=== PATIENT | female | born 1940 | race Two or more races ===

== ENCOUNTER 2022-12-11 15:06 | Outpatient (REF) | payer MEDICARE, MEDICAID, SELFPAY ==
--- NOTE | ~2022-12-11 | XR_ITS ---
EXAMINATION: XR BILATERAL KNEES CLINICAL INFORMATION: Reason for Exam M25.561 - Pain in right knee COMPARISON: None TECHNIQUE: 1 views of the bilateral knees and one view of each knee FINDINGS: RIGHT KNEE: No acute fracture or dislocation. Moderate degenerative changes of the knee with loss of lateral compartment joint space, lateral and patellofemoral compartment osteophytes and quadriceps tendon enthesopathy. No joint effusion. Atherosclerotic vascular calcification. LEFT KNEE: No acute fracture or dislocation. Moderate degenerative changes of the knee with loss of medial compartment joint space and lateral and patellofemoral compartment osteophytes and quadriceps tendon enthesopathy. Small suprapatellar joint effusion. Atherosclerotic vascular calcification. XR/XR knee standing BI IMPRESSION: * No acute osseous abnormality. * Moderate degenerative changes of the knees. Small left suprapatellar joint effusion.
== END 2022-12-11 15:07 | disposition home or self-care (01) ==
LOC: HO.HMGCX 15:06
PROVIDERS: PCP Internal Medicine; Visit Provider Internal Medicine
DX: M25.561 Pain in right knee (principal); M25.562 Pain in left knee
CPT/HCPCS: 73565

== ENCOUNTER → 2023-03-02 15:21 | Outpatient (BNVA) | payer MEDICARE, MEDICAID, SELFPAY | PROVIDERS: PCP Internal Medicine; Visit Provider Surgery Vascular Surgery | DX: I83.11 Varicose veins of right lower extremity with inflammation (principal) | CPT/HCPCS: 99202 ==

== ENCOUNTER 2023-03-10 09:58 | Outpatient (REF) | payer MEDICARE, MEDICAID, SELFPAY ==
--- NOTE | ~2023-03-10 | US_ITS ---
EXAMINATION: US VENOUS ULTRASOUND WITH DOPPLER LOWER EXTREMITY, BILATERAL CLINICAL INFORMATION: EXAMINATION: RIGHT and LEFT LOWER EXTREMITY VENOUS ULTRASOUND (Reflux Exam) CLINICAL INDICATION: leg pain and varicose veins. COMPARISON: None. TECHNIQUE: Color flow triplex imaging and compression Doppler was performed to evaluate both the deep and the superficial systems bilaterally. To evaluate the superficial system, the examination was performed in the upright position. Color-flow Doppler ultrasound and compression ultrasound were utilized. In addition, maneuvers were utilized to demonstrate reflux. FINDINGS: 1. DEEP VENOUS ULTRASOUND OF THE RIGHT LOWER EXTREMITY: Respiratory variation, normal compression and augmented flow are noted in the right common femoral vein as well as the right popliteal vein and there is no evidence of deep venous thrombosis at these locations. There is no evidence of reflux in the deep system in either the common femoral vein or the popliteal vein. There is no evidence of a Salcido's cyst. 2. SUPERFICIAL ULTRASOUND WITH DOPPLER OF RIGHT LOWER EXTREMITY: The right great saphenous vein at the saphenofemoral junction measures 8 mm, at the mid thigh 3 mm, gathn-ozt-mvzu 3 mm, svywh-hjh-urih 3 mm, at mid calf 3 mm and at the ankle measures 2 mm. There is 1.4 seconds reflux in the greater saphenous vein at the mid calf. There is an accessory lateral greater saphenous vein that measures 5 to 6 mm. This demonstrates greater than 3.2 seconds reflux in the mid thigh and 2.9 seconds reflux at the saphenofemoral junction. The right small saphenous vein measures 1 mm and shows no reflux. There is a geropsychologist that communicates with the right greater saphenous vein in the distal calf. This measures 2 mm and demonstrates 1.5 second reflux. There is a varicosity that communicates with the right greater saphenous vein in the distal thigh and measures 3 mm without reflux. 3. DEEP VENOUS ULTRASOUND OF THE LEFT LOWER EXTREMITY: Respiratory variation, normal compression and augmented flow are noted in the left common femoral vein as well as the left popliteal vein and there is no evidence of deep venous thrombosis at these locations. There is no evidence of reflux in the deep system in either the common femoral vein or the popliteal vein. . There is no evidence of a Salcido's cyst. 4. SUPERFICIAL ULTRASOUND WITH DOPPLER OF LEFT LOWER EXTREMITY: Left great saphenous vein at the saphenofemoral junction measures 7 mm, at the mid thigh 3 mm, lshbg-rij-buyp 4 mm, bhdju-org-tphu 3 mm, at mid calf 2 mm and at the ankle measures 3 mm. There is a medial accessory greater saphenous vein that measures 1 to 3 mm and does not demonstrate reflux There is no reflux demonstrated in the left great saphenous vein. The left small saphenous vein measures 1 mm and shows no reflux. There is a varicosity that communicates with the left greater saphenous vein in the distal thigh and measures 3 mm without reflux. US/US venous duplex LE BI IMPRESSION: 1. No evidence of reflux or thrombus in the common femoral veins or popliteal veins bilaterally. 2. Right greater saphenous vein 1.5 second reflux in the mid calf. Lateral accessory greater saphenous vein with significant 3 seconds reflux. No left-sided reflux.
== END 2023-03-10 09:59 | disposition home or self-care (01) ==
LOC: HO.US 09:58
PROVIDERS: PCP Internal Medicine; Visit Provider Surgery Vascular Surgery
DX: I83.11 Varicose veins of right lower extremity with inflammation (principal)
CPT/HCPCS: 93970

== ENCOUNTER → 2023-04-19 11:24 | Outpatient (BNVA) | payer MEDICARE, MEDICAID, SELFPAY | PROVIDERS: PCP Internal Medicine; Visit Provider Surgery Vascular Surgery | DX: I83.11 Varicose veins of right lower extremity with inflammation (principal) | CPT/HCPCS: 99212 ==

== ENCOUNTER 2023-08-11 11:33 | Outpatient (AMB) | payer MEDICARE, MEDICAID, SELFPAY ==
[2023-08-11 11:45] VITALS: BP 120/66; PULSE 85; O2SAT 96; BMI 30.2
--- NOTE | 2023-08-11 11:45 | A.OFFVIS_ITS ---
Intake Vital Signs 08/11/23 11:45 Height 5 ft 4 in Weight 176 lb BMI 30.2 BP 120/66 Blood Pressure Location Lt brachial Position Sitting Pulse 85 Pulse Source Pulse Oximeter Pulse Oximetry (%) 96 Oxygen Delivery Method Room Air Intake Visit Reasons: SWV G0439 Allergies penicillin V Allergy (Unknown, Verified 08/11/23 11:48) pt does not remember Medication List - Last Reconciled 08/11/23 by Diana Art MD aspirin 81 mg PO DAILY cholecalciferol (vitamin D3) 25 mcg PO DAILY COVID-19 vacc,mRNA(Pfizer)(PF) mL IM diclofenac sodium 1% 2 grams topical QID [Disposable briefs, pull up style As directed] escitalopram oxalate 10 mg PO DAILY hydrochlorothiazide 25 mg PO BID 90 days linaclotide (Linzess) mcg PO lorazepam 0.5 mg PO DAILY PRN omeprazole 20 mg PO DAILY trazodone 50 mg PO BEDTIME HPI SWV G0439 HPI Details Patient presents for annual visit. She complains of chronic lower back pain and difficulty with balance when walking longer distance. Patient denies weakness or numbness in extremities.Initiated the conversation about Advanced Directives. Advanced Directives help? patients prepare for current and future decisions about their medical treatment? and place of care. Discussed with patient that it is a process where a patients? current condition and prognosis are reviewed, their wishes for information? regarding their illness are elicited, and likely medical dilemmas are presented? and options discussed. The form can be amended as needed, reviewed yearly and? make changes as needed IPPE/AWV ? year old presents? for her ? Annual? Wellness Visit, initial visit.? Medical / Social History Reviewed? Past Medical History ?Yes? . ? [place]? of Care / Care Team list updated ?Yes . ? Surgical/Hospitalization? History ?Yes . ? Current Medications? (including OTC and supplements) ?Yes . ? Family History ?Yes? . ? Tobacco? Control form ?Yes . ? AUDIT-C (Alcohol use) form? ?Yes . ? Illicit drug use in Social? History ?Yes . ? Current diagnosis of? depression? ?No ? Appropriate PHQ2/PHQ9? completed ?Yes . ? Data entered by ?Medical? General Service Officer and reviewed by provider ? Fall Risk ? Fall? History? Have you had any falls with? injury in the past year? ?No . ? Have you had two or more? falls in the past year? ?No . ? Fall Risk Assessment: ?No? falls in the past year . ? HRA filled out by? the patient, reviewed by Provider and scanned. ? IPPE/AWV ? Balance? [place]berg? ?Yes . ? Tandem? walk ?Yes . ? Walk and? Turn ?Yes . ? Rise from? sit to stand ?Yes . ?Vision? Corrective? lens ?Yes ? Vision? screen ? Up-to-date, has an appointment [] for vision? screening and glaucoma screening ?Hearing? Whisper? test ?pass .? Initiated the conversation about Advanced Directives. Advanced Directives help? patients prepare for current and future decisions about their medical treatment? and place of care. Discussed with patient that it is a process where a patients? current condition and prognosis are reviewed, their wishes for information? regarding their illness are elicited, and likely medical dilemmas are presented? and options discussed. The form can be amended as needed, reviewed yearly and? make changes as needed Written? Plan?Completed. See Patient? Documents. [facility] Medical History Anxiety Chronic depression Chronic venous insufficiency Depression GERD (gastroesophageal reflux disease) Hoarseness HTN (hypertension) Hyperlipidemia IBS (irritable bowel syndrome) Lumbar radiculopathy Osteoarthritis Poor balance Surgical History History of arthroplasty of left hip Family History Father No problems noted. Mother No problems noted. Social History Housing: House Alcohol intake: never Patient Tobacco Use Status: Never used Tobacco e-Cigarette/Vaping Use: Never Used Current occupational status: retired Cognitive needs: No Hearing needs: No Vision needs: No Questionnaire Medicare Wellness Checkup What is your age?: 79 or older What gender do you identify with?: female During the past 4 weeks, how much have you been bothered by emotional problems such as feeling anxious, depressed, irritable, sad or downhearted, and blue?: not at all During the past 4 weeks, has your physical & emotional health limited your social activities with family, friends, neighbors, or groups?: not at all During the past 4 weeks, how much bodily pain have you generally had?: very mild pain During the past 4 weeks, was someone available to help you if you needed & wanted help?: yes, as much as I wanted During the past 4 weeks, what was the hardest physical activity you could do for at least 2 minutes?: light Can you get to places out of walking distance without help? (For eg., can you travel alone on buses, taxis or drive your car?): No Can you go shopping for groceries or clothes without someone's help?: No Can you prepare your own meals?: Yes Can you do your housework without help?: Yes Because of any health problems, do you need the help of another person with your personal care needs such as eating, bathing, dressing or getting around the house?: No Can you handle your own money without help?: Yes During the past 4 weeks, how would you rate your health in general?: good During the past 4 weeks how have things been going for you?: good & bad parts about equal Are you having difficulties driving your car?: not applicable, I don't use a car Do you always fasten your seat belt when you are in a car?: yes, usually During past 4 weeks, have you been bothered by the following: never: Sexual problems?, Trouble eating well? and Problems using the telephone? and seldom: Falling or dizzy when standing up and Tiredness or fatigue? Have you fallen 2 or more times in the past year?: No Are you afraid of falling?: No Are you a smoker?: no During the past 4 weeks, how many drinks of wine, beer, or other alcoholic beverages did you have?: no alcohol at all Do you exercise for about 20 minutes 3 or more times a week?: no, I usually do not exercise this much Have you been given information to help with the following?: no: Hazards in your house that might hurt you? and no: Keeping track of your medications? How often do you have trouble taking medicines the way you have been told to take them?: I always take medicine as prescribed How confident are you that you can control & manage most of your health problems?: very confident What is your race?: White Mini Mental State Exam (MMSE) Orientation What is the (year) (season) (date) (day) (month)?: year, season, date, day and month Where are we (state) (county) (town or city) (hospital) (floor)?: state, county, town or city, hospital/clinic and floor Registration Name of 3 unrelated objects clearly and slowly, then ask patient to repeat all 3 of them. (1st repeat determines score. Make sure they can repeat all three): object 1, object 2 and object 3 Attention & Calculation (CHOOSE ONE) Ask pt to begin with 100 & count backward by 7. Stop after 5 repeats. If pt cannot ask them to spell the word WORLD backward.: 93 Recall Ask patient to repeat the 3 items from question #3.: object 1, object 2 and object 3 Language Show patient a wristwatch & ask what it is. Repeat for pencil.: watch and pencil Ask the patient to repeat the phrase 'No ifs, ands, or buts' after you.: correct Ask the patient to 'take a piece of paper with their right hand' 'fold paper in half' 'place paper on floor': take paper in right hand, fold paper in half and place paper on floor Print the sentence 'CLOSE YOUR EYES' on a piece. If patient actually closes eyes then score.: followed written direction Give patient a blank piece of paper & ask to write a sentence. Score if it contains a noun & verb.: sentence contains subject and verb Ask patient to copy figure of intersecting pentagons exactly. Score if all 10 a ngles & 2 intersects are included.: all 10 angles present & 2 are intersected Score Score: 26 Activity of Daily Living Bathing - sponge bath, tub bath or shower: receives no assistance (gets in/out by self, if usual bathing means Dressing - getting clothes from closets & drawers, including inner/outer garments & fasteners.: gets clothes & gets completely dressed without help Toileting - going to the 'toilet room' for urine/bowel elimination & cleaning self/arranging clothes: goes to toilet room, cleans self, arranges clothes without help Transfer: moves in & out of bed and chair without help (may use support object) Continence: controls urination/bowel movements completely by self Feeding: feeds self without help Total Score: 0 Information obtained from: patient Using telephone: independent Traveling: dependent Shopping: dependent Preparing meals: independent Housework: independent Taking medicine: independent Managing money: independent PHQ-9 Over the last 2 weeks, how often have you been bothered by any of the following problems? 1. Little interest or pleasure in doing things: not at all 2. Feeling down, depressed, or hopeless: not at all 3. Trouble falling or staying asleep, or sleeping too much: not at all 4. Feeling tired or having little energy: several days 5. Poor appetite or overeating: not at all 6. Feeling bad about yourself - or that you are a failure or have let yourself or your family down: not at all 7. Trouble concentrating on things, such as reading the newspaper or watching television: not at all 8. Moving or speaking so slowly that other people could have noticed. Or the opposite - being so fidgety or restless that you have been moving around a lot more than usual: not at all 9. Thoughts that you would be better off or of hurting yourself in some way: not at all Total score: 1 Depression Screening Interpretation: Negative Depression Screening Done: Yes Source: Developed by Drs. Jefferson Weber, Anitra Hernandez, Marcin Rosas and colleagues, with an educational pancho from [employer]. Review of Systems Const All systems reviewed & are unremarkable except as noted in HPI and below Reports no additional complaints Eyes Reports no additional complaints ENT Reports no additional complaints Card Reports no additional complaints Resp Reports no additional complaints GI Reports no additional complaints Reports no additional complaints Musc Reports no additional complaints Physical Exam Vital Signs: Last Vital Signs Pulse 85 08/11/23 11:45 BP 120/66 08/11/23 11:45 Pulse Ox 96 08/11/23 11:45 Oxygen Delivery Method Room Air 08/11/23 11:45 BMI result Body Mass Index 30.2 Const General: no acute distress HEENT Head: Yes normal to inspection Eyes General: appearance normal, both eyes and all related structures Neck Neck: Yes no lymphadenopathy and Yes supple Resp Effort & Inspection: normal respiratory effort Auscultation: clear to auscultation bilaterally Cardio Rhythm: regular rhythm Heart sounds: S1 normal heart sound present and S2 normal heart sound present GI Inspection: Yes normal to inspection Palpation (GI): Soft to palpation Percussion: Yes normal to percussion Auscultation: normal bowel sounds Extrem General: Yes no clubbing, cyanosis or edema Assessment & Plan Assessment & Plan (1) Poor balance: Code(s): R26.89 - Other abnormalities of gait and mobility Plan: Patient will schedule an appointment with physical therapy in [place] (2) HTN (hypertension): Comment: BP < 130/80 Code(s): I10 - Essential (primary) hypertension Plan: cont meds (3) Hyperlipidemia: Code(s): E78.5 - Hyperlipidemia, unspecified (4) Lumbar radiculopathy: Code(s): M54.16 - Radiculopathy, lumbar region Plan: cont exercise and PT prn (5) Anxiety: Code(s): F41.9 - Anxiety disorder, unspecified Plan: cont meds (6) Annual physical exam: Code(s): Z00.00 - Encounter for general adult medical examination without abnormal findings Plan: Well-balanced diet and regular physical activity discussed with the patient, follow-up in 6 months or as needed Orders: Orders Complete Blood Count Auto Diff Today E78.5 - Hyperlipidemia, unspecified, I10 - Essential (primary) hypertension Comprehensive [place]. Panel Fast Today E78.5 - Hyperlipidemia, unspecified, I10 - Essential (primary) hypertension Lipid Panel Today E78.5 - Hyperlipidemia, unspecified, I10 - Essential (primary) hypertension Quality Reporting (2019) Depression/Bipolar (159/160/161/177) PHQ-9: Total score: 1 Coding Level of Care Code Medicare Subsequent (G0439) Diagnoses Poor balance R26.89 HTN (hypertension) I10 Hyperlipidemia E78.5 Lumbar radiculopathy M54.16 Anxiety F41.9 Annual physical exam Z00.00 CPT Codes Advance Care Planning - Time spent: 1-15 minutes, not on file ([id number]) Advance Care Planning Advance Care Planning discussion: Exists, not on file Forms completed: Health Care Proxy Time spent: 1-15 minutes, not on file
== END 2023-08-11 12:53 | disposition home or self-care (01) ==
PROVIDERS: PCP Internal Medicine; Visit Provider Internal Medicine
DX: Z00.00 Encounter for general adult medical examination without abnormal findings (principal); R26.89 Other abnormalities of gait and mobility; I10 Essential (primary) hypertension; E78.5 Hyperlipidemia, unspecified; M54.16 Radiculopathy, lumbar region; F41.9 Anxiety disorder, unspecified
CPT/HCPCS: 1124F; G0439

== ENCOUNTER 2023-11-12 13:46 | Outpatient (AMB) | payer MEDICARE, MEDICAID, SELFPAY ==
[2023-11-12 14:29] VITALS: BP 120/72; PULSE 58; O2SAT 97; BMI 30.2
--- NOTE | 2023-11-12 14:29 | A.OFFPC_ITS ---
Vital Signs 11/12/23 14:29 Height 5 ft 4 in Weight 176 lb BMI 30.2 BP 120/72 Blood Pressure Location Lt brachial Position Sitting Pulse 58 Pulse Source Pulse Oximeter Pulse Oximetry (%) 97 Oxygen Delivery Method Room Air Intake Visit Reasons: check skin around eyes Intake Note: Pt is here today for a follow up visit. Allergies penicillin V Allergy (Unknown, Verified 11/12/23 14:46) pt does not remember Medication List - Last Reconciled 11/12/23 by Diana Art MD aspirin 81 mg PO DAILY cholecalciferol (vitamin D3) 25 mcg PO DAILY COVID-19 vacc,mRNA(Pfizer)(PF) mL IM diclofenac sodium 1% 2 grams topical QID [Disposable briefs, pull up style As directed] escitalopram oxalate 10 mg PO DAILY hydrochlorothiazide 25 mg PO BID 90 days linaclotide (Linzess) mcg PO lorazepam 0.5 mg PO DAILY PRN omeprazole 20 mg PO DAILY trazodone 50 mg PO BEDTIME Tobacco use date assessed: 11/12/23 Fall risk assessment: No Falls in past year Last assessed Fall Risk: 11/12/23 Dental Screening Dental Screen Date: 11/12/23 Did you have a dental visit in the last 12 months?: Yes Did you have a dental problem in the last 6 months where you did not have access to dental care?: No Was dental information given to patient?: Patient has dentist HPI check skin around eyes HPI Details Patient presents for the follow-up of hypertension hyperlipidemia stable on current medications. patient complains ptosis of both upper eyelids and would like to sees Dr. Hammond. COUNTS INCLUDE 234 BEDS AT THE [facility] Medical History Anxiety Chronic depression Chronic venous insufficiency Depression GERD (gastroesophageal reflux disease) Hoarseness HTN (hypertension) Hyperlipidemia IBS (irritable bowel syndrome) Lumbar radiculopathy Osteoarthritis Poor balance Surgical History History of arthroplasty of left hip Family History Father No problems noted. Mother No problems noted. Social History Housing: House Alcohol intake: never Patient Tobacco Use Status: Never used Tobacco e-Cigarette/Vaping Use: Never Used Current occupational status: retired Cognitive needs: No Hearing needs: No Vision needs: No Questionnaire PHQ-9 Over the last 2 weeks, how often have you been bothered by any of the following problems? 1. Little interest or pleasure in doing things: not at all 2. Feeling down, depressed, or hopeless: not at all 3. Trouble falling or staying asleep, or sleeping too much: not at all 4. Feeling tired or having little energy: not at all 5. Poor appetite or overeating: not at all 6. Feeling bad about yourself - or that you are a failure or have let yourself or your family down: not at all 7. Trouble concentrating on things, such as reading the newspaper or watching television: not at all 8. Moving or speaking so slowly that other people could have noticed. Or the opposite - being so fidgety or restless that you have been moving around a lot more than usual: not at all 9. Thoughts that you would be better off or of hurting yourself in some way: not at all Total score: 0 Depression Screening Interpretation: Negative Depression Screening Done: Yes Source: Developed by Drs. Jefferson Weber, Anitra Hernandez, Marcin Rosas and colleagues, with an educational pancho from [employer]. Thrive Questionnaire Date Thrive assessed: 11/12/23 I am a: Patient What is your living situation today?: I have a steady place to live Within the past 12 months, did the food you bought not last and you didn't have the money to get more?: Never true Within the past 12 months, did you worry whether your food would run out before you got money to buy more?: Never true Do you have trouble paying for medicines?: No Do you have trouble getting transportation to medical appointments?: No Do you have trouble paying your heating and electricity bill?: No Do you have trouble taking care of your child, family member or friend?: No Do you have trouble with day-to-day activities such as bathing, preparing meals, shopping, managing finances, etc.?: No Are you currently unemployed and looking for a job?: No Are you interested in more education?: No Please select the resources that you would like help with: None Currently or been in a relationship where the following occur: no concerns reported THRIVE Score: 0 AUDIT C Alcohol Use Questionnaire (AUDIT-C) 1. How often do you have a drink containing alcohol?: Never 3. How often do you have six or more drinks on one occasion?: Never Total Score: 0 MCKAYLA-7 AMB Questionnaire MCKAYLA-7 Date MCKAYLA - 7 assessed: 11/12/23 Feeling nervous, anxious, or on edge: 0 = Not at all Not being able to stop or control worryin = Not at all Worrying too much about different things: 0 = Not at all Trouble relaxin = Not at all Being so restless that it is hard to sit still: 0 = Not at all Becoming easily annoyed or irritable: 0 = Not at all Feeling afraid as if something awful might happen: 0 = Not at all Total MCKAYLA-7 score (0-4 normal; 5-9 mild; 10-14 moderate; 15-21 severe): 0 Source: Developed by Drs. Jefferson Weber, Anitra Hernandez, Marcin Rosas and colleagues, with an educational pancho from [employer]. Review of Systems Const All systems reviewed & are unremarkable except as noted in HPI and below Reports no additional complaints Eyes Reports no additional complaints ENT Reports no additional complaints Card Reports no additional complaints Resp Reports no additional complaints GI Reports no additional complaints Reports no additional complaints Physical exam (Primary Care) Vital Signs: Last Vital Signs Pulse 58 11/12/23 14:29 BP 120/72 11/12/23 14:29 Pulse Ox 97 11/12/23 14:29 Oxygen Delivery Method Room Air 11/12/23 14:29 BMI result Body Mass Index 30.2 Tobacco/Smoking Status: Tobacco use Status Tobacco use date assessed 11/12/23 11/12/23 14:31 Patient Tobacco Use Status Never used Tobacco 11/12/23 14:31 e-Cigarette/Vaping Use Never Used 11/12/23 14:31 PHQ-9: PHQ-9 Score PHQ-9: Total score 0 11/12/23 14:50 Depression Screening Interpretation: Negative Thrive Assessment: Date of Thrive Assessment Date Thrive assessed 11/12/23 11/12/23 14:31 Currently or been in a relationship where the following occur: no concerns reported Const General: no acute distress HENMT Head: Yes normal to inspection General nose exam: Normal external nose present Eyes Other: Ptosis of upper eyelids bilaterally Neck Neck: Yes no lymphadenopathy and Yes supple Resp Effort & Inspection: normal respiratory effort Auscultation: clear to auscultation bilaterally Cardio Rhythm: regular rhythm Heart sounds: S1 normal heart sound present and S2 normal heart sound present GI Inspection: Yes normal to inspection Palpation (GI): Soft to palpation Percussion: Yes normal to percussion Extrem Other: Nonpitting edema of lower extremities bilaterally Assessment and Plan Assessment & Plan (1) Hyperlipidemia: Code(s): E78.5 - Hyperlipidemia, unspecified Plan: Continue low-cholesterol diet, patient will have a fasting blood work at [facility] (2) HTN (hypertension): Comment: BP < 130/80 Code(s): I10 - Essential (primary) hypertension Plan: Continue hydrochlorothiazide check comprehensive panel (3) Ptosis of both upper eyelids: Code(s): H02.403 - Unspecified ptosis of bilateral eyelids Plan: Referral to Dr. Hammond Orders: Orders Hemoglobin A1c Today E78.5 - Hyperlipidemia, unspecified, I10 - Essential (primary) hypertension Complete Blood Count Auto Diff Today E78.5 - Hyperlipidemia, unspecified, I10 - Essential (primary) hypertension Comprehensive [place]. Panel Fast Today E78.5 - Hyperlipidemia, unspecified, I10 - Essential (primary) hypertension Referrals Ophthalmology Referral H02.403 - Unspecified ptosis of bilateral eyelids Coding Level of Care Code Est Pt Level 3 (11495) Diagnoses Hyperlipidemia E78.5 HTN (hypertension) I10 Ptosis of both upper eyelids H02.403
== END 2023-11-12 15:24 | disposition home or self-care (01) ==
LOC: HO.HMGC 13:46
PROVIDERS: PCP Internal Medicine; Visit Provider Internal Medicine
DX: E78.5 Hyperlipidemia, unspecified (principal); I10 Essential (primary) hypertension; H02.403 Unspecified ptosis of bilateral eyelids
CPT/HCPCS: 99213

== ENCOUNTER 2024-02-07 12:55 | Outpatient (AMB) | payer MEDICARE, MEDICAID, SELFPAY ==
[2024-02-07 12:58] VITALS: BP 132/76; PULSE 63; O2SAT 96; BMI 30.9
--- NOTE | 2024-02-07 12:58 | A.OFFPC_ITS ---
Vital Signs 02/07/24 12:58 Height 5 ft 4 in Weight 180 lb BMI 30.9 BP 132/76 Blood Pressure Location Lt brachial Position Sitting Pulse 63 Pulse Source Pulse Oximeter Pulse Oximetry (%) 96 Oxygen Delivery Method Room Air Intake Visit Reasons: 6 Month follow up Allergies penicillin V Allergy (Unknown, Verified 02/07/24 13:01) pt does not remember Medication List - Last Reconciled 02/07/24 by Diana Art MD aspirin 81 mg PO DAILY cholecalciferol (vitamin D3) 25 mcg PO DAILY diclofenac sodium 1% 2 grams topical QID [Disposable briefs, pull up style As directed] escitalopram oxalate 10 mg PO DAILY hydrochlorothiazide 25 mg PO BID 90 days linaclotide (Linzess) mcg PO lorazepam 0.5 mg PO DAILY PRN omeprazole 20 mg PO DAILY trazodone 50 mg PO BEDTIME Tobacco use date assessed: 02/07/24 Fall risk assessment: 1 Fall in past year Last assessed Fall Risk: 02/07/24 Dental Screening Dental Screen Date: 02/07/24 Did you have a dental visit in the last 12 months?: Yes Did you have a dental problem in the last 6 months where you did not have access to dental care?: No Was dental information given to patient?: Patient has dentist HPI 6 Month follow up HPI Details Pt presents for f/u HTN, diet controlled hyperlipid, stable on meds. Depression is stable on meds and pt follows up with psychiatrist. PENDING SALE TO [facility] Medical History Hoarseness Anxiety Poor balance Hyperlipidemia IBS (irritable bowel syndrome) Depression Lumbar radiculopathy Chronic venous insufficiency Osteoarthritis GERD (gastroesophageal reflux disease) Chronic depression HTN (hypertension) Surgical History History of arthroplasty of left hip Family History Father No problems noted. Mother No problems noted. Social History Housing: House Alcohol intake: never Patient Tobacco Use Status: Never used Tobacco e-Cigarette/Vaping Use: Never Used Current occupational status: retired Cognitive needs: No Hearing needs: No Vision needs: No Questionnaire Thrive Questionnaire Date Thrive assessed: 11/12/23 AUDIT C Alcohol Use Questionnaire (AUDIT-C) 1. How often do you have a drink containing alcohol?: Never 3. How often do you have six or more drinks on one occasion?: Never Total Score: 0 Score Reviewed/Action Taken: Yes MCKAYLA-7 AMB Questionnaire MCKAYLA-7 Date MCKAYLA - 7 assessed: 11/12/23 Source: Developed by Drs. Jefferson Weber, Anitra Hernandez, Marcin Rosas and colleagues, with an educational pancho from [employer]. Review of Systems Const All systems reviewed & are unremarkable except as noted in HPI and below Reports no additional complaints Eyes Reports no additional complaints ENT Reports no additional complaints Card Reports no additional complaints Resp Reports no additional complaints GI Reports no additional complaints Reports no additional complaints Physical exam (Primary Care) Vital Signs: Last Vital Signs Pulse 63 02/07/24 12:58 BP 132/76 02/07/24 12:58 Pulse Ox 96 02/07/24 12:58 Oxygen Delivery Method Room Air 02/07/24 12:58 BMI result Body Mass Index 30.9 Tobacco/Smoking Status: Tobacco use Status Tobacco use date assessed 02/07/24 02/07/24 13:04 Patient Tobacco Use Status Never used Tobacco 02/07/24 12:59 e-Cigarette/Vaping Use Never Used 02/07/24 12:59 Thrive Assessment: Date of Thrive Assessment Date Thrive assessed 11/12/23 02/07/24 12:59 Const General: no acute distress HENMT Head: Yes normal to inspection Mouth: Normal oral and palatal mucosa present Eyes General: appearance normal, both eyes and all related structures Neck Neck: Yes supple Resp Effort & Inspection: normal respiratory effort Auscultation: clear to auscultation bilaterally Cardio Rhythm: regular rhythm Heart sounds: S1 normal heart sound present and S2 normal heart sound present GI Inspection: Yes normal to inspection Palpation (GI): Soft to palpation Percussion: Yes normal to percussion Auscultation: normal bowel sounds Assessment and Plan Assessment & Plan (1) Lumbar radiculopathy: Comment: Chronic Code(s): M54.16 - Radiculopathy, lumbar region Plan: Patient will restart physical therapy at [facility] (2) HTN (hypertension): Comment: BP < 130/80 Code(s): I10 - Essential (primary) hypertension Plan: Continue hydrochlorothiazide (3) Depression: Code(s): F32.9 - Major depressive disorder, single episode, unspecified Plan: Continue current medications (4) Hyperlipidemia: Code(s): E78.5 - Hyperlipidemia, unspecified Plan: Continue low-cholesterol diet (5) Hyperglycemia: Code(s): R73.9 - Hyperglycemia, unspecified Plan: A1c was 6.0, ADA diet increase physical activity discussed with the patient follow-up in 6 months with a fasting labs before Orders: Orders Complete Blood Count no Diff 6 Months E78.5 - Hyperlipidemia, unspecified, F3 2.9 - Major depressive disorder, single episode, unspecified, I10 - Essential (primary) hypertension Lipid Panel 6 Months E78.5 - Hyperlipidemia, unspecified, F32.9 - Major depressive disorder, single episode, unspecified, I10 - Essential (primary) hypertension PT Evaluation and Treatment Today M54.16 - Radiculopathy, lumbar region Hemoglobin A1c 6 Months E78.5 - Hyperlipidemia, unspecified, F32.9 - Major depressive disorder, single episode, unspecified, I10 - Essential (primary) hypertension Comprehensive [place]. Panel Fast 6 Months E78.5 - Hyperlipidemia, unspecified, F32.9 - Major depressive disorder, single episode, unspecified, I10 - Essential (primary) hypertension Coding Level of Care Code Est Pt Level 4 (34574) Diagnoses Lumbar radiculopathy M54.16 HTN (hypertension) I10 Depression F32.9 Hyperlipidemia E78.5 Hyperglycemia R73.9
== END 2024-02-07 13:46 | disposition home or self-care (01) ==
LOC: HO.HMGC 12:55
PROVIDERS: PCP Internal Medicine; Visit Provider Internal Medicine
DX: M54.16 Radiculopathy, lumbar region (principal); I10 Essential (primary) hypertension; F32.9 Major depressive disorder, single episode, unspecified; E78.5 Hyperlipidemia, unspecified; R73.9 Hyperglycemia, unspecified
CPT/HCPCS: 99214

== ENCOUNTER 2024-08-14 13:33 | Outpatient (AMB) | payer MEDICARE, MEDICAID, SELFPAY ==
--- NOTE | 2024-08-14 13:23 | AM.OFFVISMDC ---
Intake Intake Visit Reasons: SWV [id number] Allergies penicillin V Allergy (Unknown, Verified 08/14/24 13:23) pt does not remember Medication List - Last Reconciled 08/14/24 by Diana Art MD aspirin 81 mg PO DAILY cholecalciferol (vitamin D3) 25 mcg PO DAILY diclofenac sodium 1% 2 grams topical QID [Disposable briefs, pull up style As directed] escitalopram oxalate 10 mg PO DAILY hydrochlorothiazide 25 mg PO BID 90 days linaclotide (Linzess) mcg PO lorazepam 0.5 mg PO DAILY PRN omeprazole 20 mg PO DAILY trazodone 50 mg PO BEDTIME HPI SWV [id number] HPI Details Initiated the conversation about Advanced Directives. Advanced Directives help? patients prepare for current and future decisions about their medical treatment? and place of care. Discussed with patient that it is a process where a patients? current condition and prognosis are reviewed, their wishes for information? regarding their illness are elicited, and likely medical dilemmas are presented? and options discussed. The form can be amended as needed, reviewed yearly and? make changes as needed IPPE/AWV ? year old presents? for her ? Annual? Wellness Visit, initial visit.? Medical / Social History Reviewed? Past Medical History ?Yes? . ? [place]? of Care / Care Team list updated ?Yes . ? Surgical/Hospitalization? History ?Yes . ? Current Medications? (including OTC and supplements) ?Yes . ? Family History ?Yes? . ? Tobacco? Control form ?Yes . ? AUDIT-C (Alcohol use) form? ?Yes . ? Illicit drug use in Social? History ?Yes . ? Current diagnosis of? depression? ?No ? Appropriate PHQ2/PHQ9? completed ?Yes . ? Data entered by ?Medical? St[employer] Or [employer] Salesperson and reviewed by provider ? Fall Risk ? Fall? History? Have you had any falls with? injury in the past year? ?No . ? Have you had two or more? falls in the past year? ?No . ? Fall Risk Assessment: ?No? falls in the past year . ? HRA filled out by? the patient, reviewed by Provider and scanned. ? IPPE/AWV ? Balance? [place]? ?Yes . ? Tandem? walk ?Yes . ? Walk and? Turn ?Yes . ? Rise from? sit to stand ?Yes . ?Vision? Corrective? lens ?Yes ? Vision? screen ? Up-to-date, has an appointment [] for vision? screening and glaucoma screening ?Hearing? Whisper? test ?pass .? Initiated the conversation about Advanced Directives. Advanced Directives help? patients prepare for current and future decisions about their medical treatment? and place of care. Discussed with patient that it is a process where a patients? current condition and prognosis are reviewed, their wishes for information? regarding their illness are elicited, and likely medical dilemmas are presented? and options discussed. The form can be amended as needed, reviewed yearly and? make changes as needed Written? Plan?Completed. See Patient? Documents. REPLACED BY [facility] Medical History Hoarseness Anxiety Poor balance Hyperlipidemia IBS (irritable bowel syndrome) Depression Lumbar radiculopathy Chronic venous insufficiency Osteoarthritis GERD (gastroesophageal reflux disease) Chronic depression HTN (hypertension) Surgical History History of arthroplasty of left hip Family History Father No problems noted. Mother No problems noted. Social History Housing: House Alcohol intake: never Patient Tobacco Use Status: Never used Tobacco e-Cigarette/Vaping Use: Never Used Current occupational status: retired Cognitive needs: No Hearing needs: No Vision needs: No Questionnaire Medicare Wellness Checkup What is your age?: 79 or older What gender do you identify with?: female During the past 4 weeks, how much have you been bothered by emotional problems such as feeling anxious, depressed, irritable, sad or downhearted, and blue?: quite a bit During the past 4 weeks, has your physical & emotional health limited your social activities with family, friends, neighbors, or groups?: slightly During the past 4 weeks, how much bodily pain have you generally had?: moderate pain During the past 4 weeks, was someone available to help you if you needed & wanted help?: yes, as much as I wanted During the past 4 weeks, what was the hardest physical activity you could do for at least 2 minutes?: light Can you get to places out of walking distance without help? (For eg., can you travel alone on buses, taxis or drive your car?): No Can you go shopping for groceries or clothes without someone's help?: No Can you prepare your own meals?: No Can you do your housework without help?: No Because of any health problems, do you need the help of another person with your personal care needs such as eating, bathing, dressing or getting around the house?: Yes Can you handle your own money without help?: Yes During the past 4 weeks, how would you rate your health in general?: good During the past 4 weeks how have things been going for you?: good & bad parts about equal Are you having difficulties driving your car?: not applicable, I don't use a car Do you always fasten your seat belt when you are in a car?: yes, usually During past 4 weeks, have you been bothered by the following: never: Sexual problems?, Trouble eating well?, Problems using the telephone? and Tiredness or fatigue? and sometimes: Falling or dizzy when standing up and Teeth or denture problems? Have you fallen 2 or more times in the past year?: Yes Are you afraid of falling?: No Are you a smoker?: no During the past 4 weeks, how many drinks of wine, beer, or other alcoholic beverages did you have?: no alcohol at all Do you exercise for about 20 minutes 3 or more times a week?: yes, most of the time Have you been given information to help with the following?: no: Hazards in your house that might hurt you? and no: Keeping track of your medications? How often do you have trouble taking medicines the way you have been told to take them?: I always take medicine as prescribed How confident are you that you can control & manage most of your health problems?: very confident What is your race?: White Mini Mental State Exam (MMSE) Orientation What is the (year) (season) (date) (day) (month)?: year, season, date, day and month Where are we (state) (county) (town or city) (hospital) (floor)?: state, county, town or city, hospital/clinic and floor Registration Name of 3 unrelated objects clearly and slowly, then ask patient to repeat all 3 of them. (1st repeat determines score. Make sure they can repeat all three): object 1, object 2 and object 3 Attention & Calculation (CHOOSE ONE) Spell WORLD backwards (DLROW): 5 letters Recall Ask patient to repeat the 3 items from question #3.: object 1, object 2 and object 3 Language Show patient a wristwatch & ask what it is. Repeat for pencil.: watch and pencil Ask the patient to repeat the phrase 'No ifs, ands, or buts' after you.: correct Ask the patient to 'take a piece of paper with their right hand' 'fold paper in half' 'place paper on floor': take paper in right hand, fold paper in half and place paper on floor Print the sentence 'CLOSE YOUR EYES' on a piece. If patient actually closes eyes then score.: followed written direction Give patient a blank piece of paper & ask to write a sentence. Score if it contains a noun & verb.: sentence contains subject and verb Score Score: 29 Activity of Daily Living Bathing - sponge bath, tub bath or shower: receives help in bathing only one body part (such as back or leg) Dressing - getting clothes from closets & drawers, including inner/outer garments & fasteners.: gets clothes & gets completely dressed without help Toileting - going to the 'toilet room' for urine/bowel elimination & cleaning self/arranging clothes: goes to toilet room, cleans self, arranges clothes without help Transfer: moves in & out of bed and chair without help (may use support object) Continence: controls urination/bowel movements completely by self Feeding: feeds self without help Total Score: 0 Information obtained from: patient Using telephone: independent Traveling: dependent Shopping: dependent Preparing meals: dependent Housework: dependent Taking medicine: independent Managing money: independent PHQ-9 Over the last 2 weeks, how often have you been bothered by any of the following problems? 1. Little interest or pleasure in doing things: not at all 2. Feeling down, depressed, or hopeless: more than half the days 3. Trouble falling or staying asleep, or sleeping too much: not at all 4. Feeling tired or having little energy: several days 5. Poor appetite or overeating: not at all 6. Feeling bad about yourself - or that you are a failure or have let yourself or your family down: not at all 7. Trouble concentrating on things, such as reading the newspaper or watching television: not at all 8. Moving or speaking so slowly that other people could have noticed. Or the opposite - being so fidgety or restless that you have been moving around a lot more than usual: not at all 9. Thoughts that you would be better off or of hurting yourself in some way: not at all Total score: 3 Depression Screening Interpretation: Negative Depression Screening Done: Yes 58710 - PHQ-9 Billing: Yes Source: Developed by Anitra Campuzano.W. David, Marcin Rosas and colleagues, with an educational pancho from [employer]. Review of Systems Const All systems reviewed & are unremarkable except as noted in HPI and below Eyes Reports no additional complaints ENT Reports no additional complaints Card Reports no additional complaints Resp Reports no additional complaints GI Reports no additional complaints Reports no additional complaints Assessment & Plan Assessment & Plan (1) Lumbar radiculopathy: Comment: Chronic Code(s): M54.16 - Radiculopathy, lumbar region Plan[facility] (2) Hyperglycemia: Code(s): R73.9 - Hyperglycemia, unspecified Plan: ADA diet, increase physical activity patient will have fasting blood work (3) Hyperlipidemia: Code(s): E78.5 - Hyperlipidemia, unspecified Plan: Continue low-cholesterol diet (4) Depression: Comment: Controlled on current medications patient is established with Psychiatry Code(s): F32.9 - Major depressive disorder, single episode, unspecified Plan: Continue current medications Orders: Orders Comprehensive [place]. Panel Fast Today E55.9 - Vitamin D deficiency, unspecified, E78.5 - Hyperlipidemia, unspecified, F32.9 - Major depressive disorder, single episode, unspecified, I10 - Essential (primary) hypertension, R73.9 - Hyperglycemia, unspecified Complete Blood Count Auto Diff Today E55.9 - Vitamin D deficiency, unspecified, E78.5 - Hyperlipidemia, unspecified, F32.9 - Major depressive disorder, single episode, unspecified, I10 - Essential (primary) hypertension, R73.9 - Hyperglycemia, unspecified Hemoglobin A1c Today E55.9 - Vitamin D deficiency, unspecified, E78.5 - Hyperlipidemia, unspecified, F32.9 - Major depressive disorder, single episode, unspecified, I10 - Essential (primary) hypertension, R73.9 - Hyperglycemia, unspecified Lipid Panel Today E55.9 - Vitamin D deficiency, unspecified, E78.5 - Hyperlipidemia, unspecified, F32.9 - Major depressive disorder, single episode, unspecified, I10 - Essential (primary) hypertension, R73.9 - Hyperglycemia, unspecified Vitamin D 25-OH Total Today E55.9 - Vitamin D deficiency, unspecified, E78.5 - Hyperlipidemia, unspecified, F32.9 - Major depressive disorder, single episode, unspecified, I10 - Essential (primary) hypertension, R73.9 - Hyperglycemia, unspecified Referrals Pain Management Referral M54.16 - Radiculopathy, lumbar region Quality Reporting (2019) Depression/Bipolar (159/160/161/177) PHQ-9: Total score: 3 Coding Level of Care Code Medicare Subsequent (G0439) Diagnoses Lumbar radiculopathy M54.16 Hyperglycemia R73.9 Hyperlipidemia E78.5 Depression F32.9 CPT Codes Advance Care Planning - Advance Care Planning discussion: On file, no changes ([id number]) Advance Care Planning - Time spent: 1-15 minutes, on File ([id number]) Advance Care Planning Advance Care Planning discussion: On file, no changes Forms completed: Health Care Proxy Time spent: 1-15 minutes, on File Did not discuss due to Cultural/Spiritual beliefs: Yes
== END 2024-08-14 13:50 | disposition home or self-care (01) ==
LOC: HO.HMCC 13:33
PROVIDERS: PCP Internal Medicine; Visit Provider Internal Medicine
DX: Z00.00 Encounter for general adult medical examination without abnormal findings (principal); M54.16 Radiculopathy, lumbar region; R73.9 Hyperglycemia, unspecified; E78.5 Hyperlipidemia, unspecified; F32.9 Major depressive disorder, single episode, unspecified

== ENCOUNTER → 2024-08-14 13:33 | Outpatient (BNVA) | payer MEDICARE, MEDICAID, SELFPAY | PROVIDERS: PCP Internal Medicine; Visit Provider Internal Medicine ==

== ENCOUNTER 2024-12-21 09:23 | Outpatient (AMB) | payer MEDICARE, MEDICAID, SELFPAY ==
[2024-12-21 09:24] VITALS: BP 110/70; PULSE 77; TEMP 36.7; O2SAT 95; BMI 29.5
--- NOTE | 2024-12-21 09:24 | MHC.PC.OV ---
Vital Signs 12/21/24 09:24 Height 5 ft 4 in Weight 172 lb BMI 29.5 BP 110/70 Blood Pressure Location Lt brachial Position Sitting Pulse 77 Pulse Source Pulse Oximeter Temp 98.0 F Temp Source Oral Pulse Oximetry (%) 95 Oxygen Delivery Method Room Air Intake Visit Reasons: 6 month follow up Intake Note: Pt is here today for 6 months follow up visit on labs. Allergies penicillin V Allergy (Unknown, Verified 12/21/24 09:31) pt does not remember Medication List - Last Reconciled 12/21/24 by Diana Art MD aspirin 81 mg PO DAILY cholecalciferol (vitamin D3) 25 mcg PO DAILY diclofenac sodium 1% 2 grams topical QID [Disposable briefs, pull up style As directed] escitalopram oxalate 10 mg PO DAILY hydrochlorothiazide 25 mg PO BID 90 days linaclotide (Linzess) mcg PO lorazepam 0.5 mg PO DAILY PRN omeprazole 20 mg PO DAILY trazodone 50 mg PO BEDTIME Tobacco use date assessed: 12/21/24 Fall risk assessment: No Falls in past year Last assessed Fall Risk: 12/21/24 Dental Screening Dental Screen Date: 12/21/24 Did you have a dental visit in the last 12 months?: Yes Did you have a dental problem in the last 6 months where you did not have access to dental care?: No Was dental information given to patient?: Patient has dentist HPI 6 month follow up HPI Details Pt presents for HTN, depression, IBS with constipation, stable on meds. Patient complains of chronic lower and mid back pain worse after walking longer distance and needs a walker to improve her mobility. Patient denies weakness or numbness in extremities change in bowel bladder function. She has been in physical therapy at [facility] Medical History Hoarseness Anxiety Poor balance Hyperlipidemia IBS (irritable bowel syndrome) Depression Lumbar radiculopathy Chronic venous insufficiency Osteoarthritis GERD (gastroesophageal reflux disease) Chronic depression HTN (hypertension) Surgical History History of arthroplasty of left hip Family History Father No problems noted. Mother No problems noted. Social History Housing: House Alcohol intake: never Patient Tobacco Use Status: Never used Tobacco e-Cigarette/Vaping Use: Never Used service: No Current occupational status: retired Cognitive needs: No Hearing needs: No Vision needs: No Questionnaire PHQ-9 Over the last 2 weeks, how often have you been bothered by any of the following problems? 1. Little interest or pleasure in doing things: not at all 2. Feeling down, depressed, or hopeless: more than half the days 3. Trouble falling or staying asleep, or sleeping too much: not at all 4. Feeling tired or having little energy: several days 5. Poor appetite or overeating: not at all 6. Feeling bad about yourself - or that you are a failure or have let yourself or your family down: not at all 7. Trouble concentrating on things, such as reading the newspaper or watching television: not at all 8. Moving or speaking so slowly that other people could have noticed. Or the opposite - being so fidgety or restless that you have been moving around a lot more than usual: not at all 9. Thoughts that you would be better off or of hurting yourself in some way: not at all Total score: 3 Depression Screening Interpretation: Negative Depression Screening Done: Yes 43067 - PHQ-9 Billing: Yes Source: Developed by Drs. Jefferson Weber, Anitra Hernandez, Marcin Rosas and colleagues, with an educational pancho from [employer]. Thrive Questionnaire Date Thrive assessed: 12/21/24 I am a: Patient What is your living situation today?: I have a steady place to live Within the past 12 months, did the food you bought not last and you didn't have the money to get more?: Never true Within the past 12 months, did you worry whether your food would run out before you got money to buy more?: Never true Do you have trouble paying for medicines?: No Do you have trouble getting transportation to medical appointments?: No Do you have trouble paying your heating and electricity bill?: No Do you have trouble taking care of your child, family member or friend?: No Do you have trouble with day-to-day activities such as bathing, preparing meals, shopping, managing finances, etc.?: No Are you currently unemployed and looking for a job?: No Are you interested in more education?: No Please select the resources that you would like help with: None THRIVE Score: 0 AUDIT C Alcohol Use Questionnaire (AUDIT-C) 1. How often do you have a drink containing alcohol?: Never 3. How often do you have six or more drinks on one occasion?: Never Total Score: 0 MCKAYLA-7 AMB Questionnaire MCKAYLA-7 Date MCKAYLA - 7 assessed: 12/21/24 Feeling nervous, anxious, or on edge: 0 = Not at all Not being able to stop or control worryin = Not at all Worrying too much about different things: 0 = Not at all Trouble relaxin = Not at all Being so restless that it is hard to sit still: 0 = Not at all Becoming easily annoyed or irritable: 0 = Not at all Feeling afraid as if something awful might happen: 0 = Not at all Total MCKAYLA-7 score (0-4 normal; 5-9 mild; 10-14 moderate; 15-21 severe): 0 Source: Developed by Drs. Jefferson Weber, Anitra Hernandez, Marcin Rosas and colleagues, with an educational pancho from [employer]. Review of Systems Const All systems reviewed & are unremarkable except as noted in HPI and below Eyes Reports no additional complaints ENT Reports no additional complaints Card Reports no additional complaints Resp Reports no additional complaints GI Reports no additional complaints Reports no additional complaints Physical exam (Primary Care) Vital Signs: Last Vital Signs Temp 98.0 F 12/21/24 09:24 Pulse 77 12/21/24 09:24 BP 110/70 12/21/24 09:24 Pulse Ox 95 12/21/24 09:24 Oxygen Delivery Method Room Air 12/21/24 09:24 BMI result Body Mass Index 29.5 Tobacco/Smoking Status: Tobacco use Status Tobacco use date assessed 12/21/24 12/21/24 09:35 Patient Tobacco Use Status Never used Tobacco 12/21/24 09:24 e-Cigarette/Vaping Use Never Used 12/21/24 09:24 PHQ-9: PHQ-9 Score PHQ-9: Total score 3 12/21/24 09:35 Depression Screening Interpretation: Negative Thrive Assessment: Date of Thrive Assessment Date Thrive assessed 12/21/24 12/21/24 09:35 Const General: no acute distress HENMT Head: Yes normal to inspection Ears: hearing grossly normal bilaterally Neck Neck: Yes supple Resp Effort & Inspection: normal respiratory effort Auscultation: clear to auscultation bilaterally Cardio Rhythm: regular rhythm Heart sounds: S1 normal heart sound present and S2 normal heart sound present GI Inspection: Yes normal to inspection Palpation (GI): Soft to palpation Coding Level of Care Code Est Pt Level 4 (22132) Diagnoses HTN (hypertension) I10 Hyperglycemia R73.9 Depression F32.9 IBS (irritable bowel syndrome) K58.9 Lumbar radiculopathy M54.16 Additional Codes PHQ-9 - 17023 - PHQ-9 Billing: Yes ([id number]) Assessment & Plan Assessment & Plan (1) HTN (hypertension): Comment: BP < 130/80 Code(s): I10 - Essential (primary) hypertension Category: Medical Plan: Continue hydrochlorothiazide (2) Hyperglycemia: Code(s): R73.9 - Hyperglycemia, unspecified Category: Medical Plan: A1c is 6.3, ADA diet regular physical activity discussed with the patient. (3) Depression: Comment: Controlled on current medications patient is established with Psychiatry Code(s): F32.9 - Major depressive disorder, single episode, unspecified Category: Medical Plan: Continue escitalopram (4) IBS (irritable bowel syndrome): Code(s): K58.9 - Irritable bowel syndrome, unspecified Category: Medical Plan: Continue Linzess (5) Lumbar radiculopathy: Comment: Chronic Code(s): M54.16 - Radiculopathy, lumbar region Category: Medical Plan: Continue physical therapy, prescription for walker given to the patient Orders: Orders Hemoglobin A1c 6 Months I10 - Essential (primary) hypertension, R73.9 - Hyperglycemia, unspecified Comprehensive [place]. Panel Fast 6 Months I10 - Essential (primary) hypertension, R73.9 - Hyperglycemia, unspecified Medications: New walker As directed 1 ea 0RF
--- OUTSIDE RECORDS SUMMARY | 2024-12-21 10:22 | XMS_ITS | Data Portability ---
Author Organization [facility] Address [address] [place] [address] Care Team Providers Care Seal Mixing Operator Name Role Phone ROSA AROCS Primary Care Provider Assessment Encounter Date Assessment Date Assessment LastModified by Organization Details LastModified Time 07/11/2014 07/11/2014 Reema Joshua is a 74 year old woman with complaints of left hip pain and low back pain radiating into left lower extremity. ? ? ?She is here for a follow up.She is having some pain benefit with celebrex and I will prescribe the same for her.She is going to trial acupuncture in July 2014. ? ? ?I recommend a? ? ?repeat lumbar epidural? ? ?steroid injection under? ? ?fluoroscopic? ? ?guidance? ? ?.? ? ?The risks and? ? ?benefits of the procedure? ? ? were discussed in detail. She wishes to proceed. An appointment has been booked for the same one month after trial of acupuncture.? ? ?She needs a combine driver on the day of the procedure. [email or web address] Not available 07/11/2014 13:45:13 04/15/2015 04/15/2015 Reema Joshua is a 74 year old woman with complaints of left hip pain and left knee? ? ?pain? ? ?and low back pain radiating into left lower extremity.?She now has mainly left knee pain. ? ? ?I recommend a left knee steroid injection under ultrasound guidance. The risks and? ? ?benefits of the procedure? ? ? were discussed in detail. She wishes to proceed.An appointment has been booked for the same. She needs a combine driver on the day of the procedure. She will also benefit from a left hip injection under fluoroscopic guidance in four weeks. She has signed a release and will obtain information from Dr. Angela's office. [email or web address] Not available 04/19/2015 10:26:44 04/23/2015 04/23/2015 Reema Joshua is a 74 year old woman with complaints of left hip pain and left knee? ? ?pain? ? ?and low back pain radiating into left lower extremity.?She now has mainly left knee pain.?She is here for a left knee steroid injection under ultrasound guidance. The risks and? ? ?benefits of the procedure? ? ? were discussed in detail. She wishes to proceed. She will follow up for a left hip injection under fluoroscopic guidance in four weeks. [email or web address] Not available 04/23/2015 09:41:50 05/27/2015 05/27/2015 Reema Joshua is a 74 year old woman with complaints of left hip pain and left knee? ? ?pain? ? ?and low back pain radiating into left lower extremity.? ? ?She was scheduled for a left hip injection under fluoroscopic guidance today. She states she was started on Coumadin one week ago for phlebitis. She will need to come off Coumadin for 5 days for the above procedure.? ? ? I have left a message for her PCP in regards to the feasibility of stopping Coumadin and when it would be safe to do so. I have encouraged her to continue with? ? ?aquatic exercises . [email or web address] Not available 05/28/2015 14:52:29 04/08/2016 04/08/2016 Reema Joshua is a 75 year old woman with complaints of left hip pain and low back pain radiating into left lower extremity.? ? ? She now has mainly left? ? ?hip pain. She is here for a left hip trochanteric bursal steroid injection under fluoroscopic guidance.? ? ?The risks and benefits of the procedure? ? ? were discussed in detail. She wishes to proceed. She can restart her plavix today. She can follow up as needed. [email or web address] Not available 04/08/2016 13:31:08 Plan of Treatment Reminders Order Date Submit Date Provider Last Modified By Organization Details Last Modified Time Details Appointments None recorded. Lab None recorded. Referral None recorded. Procedures None recorded. Surgeries None recorded. Imaging None recorded. Medication Orders Celebrex 200 mg capsule 2013 014 [email or web address] [facility] #[id number], [address], [place], [address], 5 10:53:12 Patient TargetsNo targets recorded. Patient Instructions Encounter Date Encounter Id Patient Instructions Last Modified By Organization Details Last Modified Time 07/11/2014 [id number] She was advised against bed rest lasting longer than four days and to continue activities as tolerated. [email or web address] Not available 07/11/2014 13:40:17 04/15/2015 [id number] She was advised against bed rest lasting longer than four days and to continue activities as tolerated. [email or web address] Not available 04/19/2015 10:24:28 04/23/2015 [id number] She was advised against bed rest lasting longer than four days and to continue activities as tolerated. [email or web address] Not available 04/23/2015 09:39:12 05/27/2015 [id number] She was advised against bed rest lasting longer than four days and to continue activities as tolerated. [email or web address] Not available 05/28/2015 09:35:33 04/08/2016 [id number] She was advised against bed rest lasting longer than four days and to continue activities as tolerated. [email or web address] Not available 04/08/2016 13:28:34 Reason for Referral None Reported. Problems Name Problem SNOMED Code Status Onset Date Resolution Date Notes Provider Name and Address Organization Details Recorded Time Hip pain [id number] Claire jama MD [address] , [address], [place], [address], [place] [facility] 6 14:06:08 Lumbosacral radiculitis [id number] Claire jama MD [address] , [address], [place], [address], [place] [facility] 6 14:06:09 Displacement of lumbar intervertebral disc without myelopathy [id number] Claire jama MD [address] , [address], [place], [address], [place] [facility] 6 14:06:09 Osteoarthritis of knee [id number] Active John jama MD [address] [facility] , [address], [place], [address], [place] [facility] 6 13:25:37 Problem Notes None recorded. Procedures Surgical History Date Name Laterality Status Provider Name and Address Organization Details Recorded Time 04/08/20 16 Greater Trochanteric Bursa Steroid Injection completed John Chatterjee MD [address] [facility] , [address], [place], [address], [place] [facility] 04/08/2016 13:31:08 04/23/20 15 Intra-articular Knee Steroid Injection completed John Chatterjee MD [address] [facility] , [address], [place], [address], [place] [facility] 04/23/2015 09:41:51 03/12/20 14 Intra-articular Hip Steroid Injection completed John Chatterjee MD [address] [facility] , [address], [place], [address], [place] [facility] 03/12/2014 10:50:42 01/30/20 14 Lumbar Epidural steroid injection under fluoroscopic guidance completed John Chatterjee MD [address] [facility] , [address], [place], [address], [place] [facility] 01/31/2014 09:27:34 Imaging Results None recorded. Procedure Notes None recorded. Medical Equipment None Reported. Allergies Allergen ID Allergen Name Allergen Category Reaction Reaction Severity Criticality Documentation Date Start Date Code Code System Note Provider Name and Address Organization Details Recorded Time 7961 Product containin g penicilli n (product) medicatio n hives rash Not available Not available Not available 01/09/2014 23771 8001 SNOMED Melany stout [place] [facility] 4 08:55:16 7962 aspirin medicatio n hives rash Not available Not available Not available 01/09/2014 1191 RxNorm Melany stout [place] [facility] 4 08:55:16 Medications Name Sig Start Date Stop Date Status Note LastModified by Organization Details LastModified Time prednisone tab 10mgpredniso ne active Not Available Not Available Not Available triamcinolon cre 0.1%triamcin olone acetonide active Not Available Not Available No t Available lorazepam tab 0.5mglorazep am active Not Available Not Available Not Available celebrex cap 100mgcelebre x active Not Available Not Available Not Available tramadl/apap tab 37.5-325 active Not Available Not Available Not Available azithromycin tab 250mg active Not Available Not Available No t Available clindamycin cap 300mg active Not Available Not Available No t Available venlafaxine cap 37.5mg active Not Available Not Available N ot Available warfarin sodium 3 mg tabs active Not Available Not Available Not Available ibuprofen tab 600mgibuprof en active Not Available Not Available Not Available venlafaxine cap 75mg er active Not Available Not Available Not Available zovirax cre 5%zovirax active Not Available Not Available No t Available zolpidem tab 5mg active Not Available Not Available Not Available voltaren gel 1%voltaren active Not Available Not Available N ot Available chlorhex glu gadiel 0.12% active Not Available Not Available No t Available naproxen tab 500mgnaproxe n active Not Available Not Available Not Available omeprazole cap 20mg active Not Available Not Available Not Available ibuprofen 600 mg tabs active Not Available Not Available Not Available venlafaxine tab 75mg active Not Available Not Available Not Available diazepam tab 5mg active Not Available Not Available Not Available omeprazole cap 20mgomeprazo le active Not Available Not Available Not Available acyclovir tab 800mgacyclov ir active Not Available Not Available Not Available acyclovir oin 5%acyclovir active Not Available Not Available Not Available voltaren 1 % gel active Not Available Not Available Not Available zolpidem tab 5mgzolpidem tartrate active Not Available Not Available Not Available valacyclovir tab 1gmvalacyclo vir hcl active Not Available Not Available Not Available zolpidem tartrate 5 mg tabs active Not Available Not Available Not Available oxycod/apap tab 5-325mgoxyco done/acetami nophen active Not Available Not Available Not Available daniel/poly/dex oin 0.1% op active Not Available Not Available Not Available lorazepam tab 0.5mg active Not Available Not Available No t Available quetiapine 25 mg tablet active Not Available Not Available Not Available prednisone 10 mg tablet TAKE 6 TABLETS BY MOUTH EVERY DAY active Not Available Not Available No t Available venlafaxine 75 mg tablet TAKE 1 TABLET BY MOUTH EVERY DAY active Not Available Not Available No t Available Effexor XR 75 mg capsule,exte nded release Take 1 capsule every day by oral route. active Not Available Not Available No t Available clindamycin HCl 300 mg capsule TAKE ONE CAPSULE BY MOUTH EVERY 6 HOURS UNTIL FINISHED active Not Available Not Available No t Available trazodone 50 mg tablet active Not Available Not Available No t Available cetirizine 10 mg tablet TAKE 1 TABLET NEEDED ONCE A DAY ORALLY 30 DAY(S) active Not Available Not Available No t Available azithromycin 250 mg tablet TAKE 2 TABLETS BY MOUTH TODAY, THEN TAKE 1 TABLET DAILY FOR 4 DAYS active Not Available Not Available No t Available tramadol 37.5 mg-acetamino phen 325 mg tablet TAKE 1 TABLET EVERY 4-6 HOURS NEEDED FOR PAIN active Not Available Not Available No t Available citalopram 10 mg tablet active Not Available Not Available Not Available valacyclovir 1 gram tablet TAKE 1 TABLET BY MOUTH EVERY MORNING active Not Available Not Available No t Available Effexor XR 37.5 mg capsule,exte nded release Take 1 capsule every day by oral route. active Not Available Not Available No t Available prednisone 20 mg tablet active Not Available Not Available Not Available sertraline 100 mg tablet active Not Available Not Available Not Available amlodipine 2.5 mg tablet active Not Available Not Available Not Available clopidogrel 75 mg tablet active Not Available Not Available Not Available cimetidine 300 mg tablet active Not Available Not Available Not Available peg-electrol yte solution 420 gram oral solution TAKE 8 OUNCE BY MOUTH DIRECTED active Not Available Not Available No t Available triamcinolon e acetonide 0.1 % topical cream APPLY TO AFFECTED AREA TWICE A DAY active Not Available Not Available No t Available bupropion HCl SR 100 mg tablet,12 hr sustained-re lease TAKE ONE TABLET BY MOUTH EVERY MORNING active Not Available Not Available No t Available acyclovir 800 mg tablet 1 CAPSULE FIVE TIMES DAILY active Not Available Not Available No t Available lidocaine-pr ilocaine 2.5 %-2.5 % topical cream active Not Available Not Available Not Available warfarin 3 mg tablet TAKE 1 TABLET BY MOUTH EVERY DAY DIRECTED active Not Available Not Available No t Available Celebrex 200 mg capsule Take 1 capsule every day by oral route after meals for 30 days. 2013 active Not Available Not Available Not Avai lable oxycodone-ac etaminophen 5 mg-325 mg tablet TAKE 1 TABLET BY MOUTH 3 TIMES A DAY NEEDED FOR SEVERE PAIN active Not Available Not Available No t Available Celebrex 100 mg capsule TAKE 1 CAPSULE ONCE DAILY. active Not Available Not Available Not Available alprazolam 0.25 mg tablet active Not Available Not Available Not Available lorazepam 0.5 mg tablet TAKE 1 TABLET BY MOUTH DAILY NEEDED active Not Available Not Available No t Available diphenhydram ine 25 mg capsule 1 CAPSULE FOUR TIMES A DAY active Not Available Not Available No t Available acyclovir 5 % topical ointment APPLY FIVE TIMES DAILY active Not Available Not Available Not Available omeprazole 20 mg capsule,erica yed release TAKE ONE CAPSULE EVERY DAY active Not Available Not Available No t Available hydrochlorot hiazide 25 mg tablet active Not Available Not Available No t Available zolpidem 5 mg tablet TAKE 1 TABLET BY MOUTH AT BEDTIME NEEDED active Not Available Not Available No t Available ibuprofen 600 mg tablet TAKE 1 TABLET BY MOUTH THREE TIMES DAILY active Not Available Not Available Not Available polyethylene glycol 3350 17 gram/dose oral powder active Not Available Not Available Not Available sertraline 50 mg tablet active Not Available Not Available Not Available naproxen 500 mg tablet TAKE 1 TABLET TWICE A DAY active Not Available Not Available Not Available diazepam 5 mg tablet TAKE 1 TABLET AT BEDTIME AND 1 TABLET 1 HR PRIOR TO PROCEDURE active Not Available Not Available No t Available neomycin 3.5 mg/g-polymyx in B 10,000 unit/g-dexam eth 0.1 % eye oint APPLY BOTH EYES AT SLEEP active Not Available Not Available No t Available neomycin-joy ymyxin-hydro analia 3.5 mg-10,000 unit/mL-1 % ear drops,susp INSTILL 5 DROPS INTO RIGHT EAR EVERY SIX HOURS active Not Available Not Available No t Available Zovirax 5 % topical cream APPLY 1 MG FIVE TIMES DAILY active Not Available Not Available No t Available mirtazapine 7.5 mg tablet active Not Available Not Available Not Available chlorhexidin e gluconate 0.12 % mouthwash USE TWICE A DAY FOR 2 WEEKS active Not Available Not Available No t Available Ocuvite active Not Available Not Avail able Not Available Ginkoba active Not Available Not Avail able Not Available peg 3350-electro lytes 236 gram-22.74 gram-6.74 gram-5.86 gram solution active Not Available Not Available Not Available Voltaren 1 % topical gel APPLY SPARINGLY TO AFFECTED AREA(S) ONCE DAILY active Not Available Not Available N ot Available Amitiza 8 mcg capsule active Not Available Not Available Not Available Children's Allergy Relief (cetirizine) 10 mg chewable tablet CHEW 1 TABLET BY MOUTH EVERY DAY active Not Available Not Available No t Available Linzess 145 mcg capsule active Not Available Not Available Not Available Linzess 290 mcg capsule active Not Available Not Available Not Available Fluvirin (PF ) 45 mcg (15 mcg x3)/0.5 mL intramuscula r syringe TO BE ADMINISTERE D BY PHARMACIST FOR IMMUNIZATIO N active Not Available Not Available No t Available Afluria (PF ) 45 mcg (15 mcg x 3)/0.5 mL intramuscula r syringe TO BE ADMINISTERE D BY A PHARMACIST active Not Available Not Available N ot Available Fluzone High-Dose (PF) 180 mcg/0.5 mL intramuscula r syringe TO BE ADMINISTERE D BY PHARMACIST FOR IMMUNIZATIO N active Not Available Not Available No t Available Vitals Date Recorded Oxygen saturation Oxygen saturation in Arterial blood by Pulse oximetry Heart rate Systolic blood pressure Diastolic blood pressure Provider Name and Address Organization Details Last Updated DateTime 4 96 % 96 % 53 /min 159 mm[Hg] 51 mm[Hg] Melany Hernandez [place] [facility] 4 13:15:11 Date Recorded Oxygen saturation Oxygen saturation in Arterial blood by Pulse oximetry Heart rate Systolic blood pressure Diastolic blood pressure Provider Name and Address Organization Details Last Updated DateTime 5 96 % 96 % 60 /min 136 mm[Hg] 59 mm[Hg] Melany Hernandez [place] [facility] 5 14:21:08 Date Recorded Oxygen saturation Oxygen saturation in Arterial blood by Pulse oximetry Heart rate Systolic blood pressure Diastolic blood pressure Provider Name and Address Organization Details Last Updated DateTime 5 97 % 97 % 76 /min 129 mm[Hg] 60 mm[Hg] Melany Hernandez [place] [facility] 5 09:02:55 Date Recorded Oxygen saturation Oxygen saturation in Arterial blood by Pulse oximetry Heart rate Systolic blood pressure Diastolic blood pressure Provider Name and Address Organization Details Last Updated DateTime 5 96 % 96 % 51 /min 139 mm[Hg] 66 mm[Hg] Melany Hernandez [place] [facility] 5 10:53:13 Date Recorded Heart rate Oxygen saturation Oxygen saturation in Arterial blood by Pulse oximetry Systolic blood pressure Diastolic blood pressure Provider Name and Address Organization Details Last Updated DateTime 6 64 /min 96 % 96 % 131 mm[Hg] 84 mm[Hg] Melany Hernandez [place] [facility] 6 11:20:11 Social History Question Answer Notes LastModified by Organizat ion Details LastModified Time Tobacco Smoking Status Former Smoker Quit x 25 years Not Available [employer] 08/09/2020 03:16:11 What Is Your Level Of Alcohol Consumption? None [id number] Information not available 08/09/2020 Are You Currently Employed? No Retired [id number] Information not available 08/09/2020 Which Illicit Or Recreational Drugs Have You Used? No [id number] Information not available 08/09/2020 Education Post Graduate PhD In Education [email or web address] Information not available 01/09/2014 Live Alone Or With Others? With Others Information not available 01/09/2014 Marital Status Informatio n not available 01/09/2014 How Many Years Have You Smoked Tobacco? 20 [id number] Information not available 08/09/2020 Sex: Unknown Functional Status None recorded. Mental Status None recorded. Family History Relationship Description Onset Age of this Age Resolved Age Notes LastModified by Organization Details LastModified Time Mother Problem Lympho theo [email or web address] Not available 04/08/2016 13:26:48 Medical History Condition Response Depression Y Arthritis Y GERD/Reflux Y Irritable Bowel Syndrome Y Gynecological HistoryNo gynecological history recorded. Obstetrics History GPAL:G 0 P 0 0 0 0 Past Encounters Encounter ID Performer Location Encounter Start Date Encounter Closed Date Diagnosis/Indication Diagnosis SNOMED-CT Code Diagnosis ICD10 Code Diagnosis Note [id number] John Chatterjee MD PAIN OFFICE [address] [place] [address] 01/09/2014 08:15:18 01/11/2014 15:38:17 Hip pain [id number] Lumbosacra l radiculitis 97617963 Displaceme nt of lumbar intervertebral disc without myelopathy 76973864 [id number] John Chatterjee MD [facility] [address] [place] [address] 01/18/2014 08:18:47 01/19/2014 09:08:58 Displacement of lumbar intervertebral disc without myelopathy 31567104 Hip pain 54424146 Lumbosacra l radiculitis 76845357 85194 [facility] [address] [place] [address] 01/29/2014 14:21:44 01/31/2014 09:29:23 Displacement of lumbar intervertebral disc without myelopathy 31715269 Hip pain 86295612 Lumbosacra l radiculitis 70579597 57142 [facility] [address] [place] [address] 03/01/2014 10:06:06 03/01/2014 13:24:08 Displacement of lumbar intervertebral disc without myelopathy 63437377 Hip pain 17159858 Lumbosacra l radiculitis 00754323 67458 [facility] [address] [place] [address] 03/12/2014 09:57:56 03/15/2014 13:28:33 Displacement of lumbar intervertebral disc without myelopathy 24883344 Hip pain 64807082 Lumbosacra l radiculitis 40989106 [id number] [facility] [address] [facility] [place] [place] [address] 04/26/2014 11:28:21 04/29/2014 17:17:49 Hip pain 68157833 Displaceme nt of lumbar intervertebral disc without myelopathy 15866087 Lumbosacra l radiculitis 72976558 Osteoarthr itis of knee 169453238 [id number] Melany Hernandez [facility] [address] [place] [address] 07/11/2014 12:58:13 07/11/2014 13:46:41 Osteoarthritis of knee 874752005 Displaceme nt of lumbar intervertebral disc without myelopathy 44937296 Hip pain 70142569 Lumbosacra l radiculitis 13858805 97552 [facility] [address] [place] [address] 04/15/2015 13:58:25 04/19/2015 10:27:09 Osteoarthritis of knee 469826194 Displaceme nt of lumbar intervertebral disc without myelopathy 04585992 Hip pain 24437444 Lumbosacra l radiculitis 67657889 90286 [facility] [address] [facility] [place] [address] 04/23/2015 08:47:56 04/23/2015 09:42:28 Osteoarthritis of knee 055000104 Displaceme nt of lumbar intervertebral disc without myelopathy 07427159 Hip pain 30659622 Lumbosacra l radiculitis 66572402 11435 [facility] [address] [facility] [place] [place] [address] 05/27/2015 09:46:08 05/28/2015 10:07:19 Osteoarthritis of knee 441598079 Displaceme nt of lumbar intervertebral disc without myelopathy 36568997 Hip pain 37141716 Lumbosacra l radiculitis 20533581 [id number] John Chatterjee MD [facility] [address] [facility] [place] [address] 04/08/2016 10:58:30 04/08/2016 14:07:13 Hip pain 10824886 M25.552 Displaceme nt of lumbar intervertebral disc without myelopathy 83240089 M51.26 Lumbosacra l radiculitis 14517901 M54.17 Health Concerns Section Related Observation LastModified by Organization Detai ls LastModified Time None Recorded Concern Status LastModified by Organization Details LastModified Time None Recorded Advance Directives Directive None Recorded Payers Encounter Date Sequence Insurance Name Policy Number Policy Horne Covered Member ID Horne Member ID Guarantor Name 07/11/2014 1 [place] [employer] Reema Joshua [id number] Reema Joshua 07/11/2014 2 [place] [facility] Reema Joshua [id number] Reema Joshua 04/15/2015 1 [place] [employer] Reema Joshua [id number] Reema Joshua 04/15/2015 2 [place] [facility] Reema Yashgur [id number] Reema Yashgur 04/23/2015 1 [place] [facility] Reema Yashgur [id number] Reema Yashgur 04/23/2015 2 [place] [facility] Reema Yashgur [id number] Reema Yashgur 05/27/2015 1 [place] [facility] Reema Yashgur [id number] Reema Yashgur 05/27/2015 2 [place] [facility] Reema Yashgur [id number] Reema Yashgur 04/08/2016 1 [place] [facility] Reema Yashgur [id number] Reema Yashgur 04/08/2016 2 [place] [facility] Reema Yashgur [id number] Reema Yashgur Notes Date Note Type Note Provider Name and Address Organization Details Recorded Time 07/11/2014 text/html She is here for a follow up . She has been taking celebrex and is doing well. She does have some left hip and knee pain. She is scheduled to trial acupuncture in July.She states overall she is doing better after LESI and left hip steroid injection. She has no history of bladder or bowel incontinence. John Chatterjee MD [address] [place] [address] , [address], [place], [address], [facility] - [facility] Management 07/13/2014 11:28:19 04/15/2015 text/html She is here for a follow up. She states she is having pain in her left knee and hip. The greatest pain is in her left knee. She states she has seen Dr. Angela for her back and had a steroid injection which she states helped. She does not want to have surgery. She continues to have multiple areas of pain due to arthritis. She has no history of bladder or bowel incontinence. She states she has trialed physical therapy , acupuncture and chiropractic treatments with no superintendent terminal pain benefit. She states the injections have helped her the most for pain relief. John Chatterjee MD [address] [facility] , [address], [place], [address], [place] [facility] 04/22/2015 09:33:10 04/23/2015 text/html She is here for left knee steroid injection under ultrasound guidance. John Chatterjee MD [address] [facility] , [address], [place], [address], [place] [facility] 05/13/2015 10:33:59 05/27/2015 text/html She is here for a left hip steroid injection. She states she had phlebitis in her right leg and has seen her PCP and has started her on Coumadin. She has been on Coumadin for the past one week. Her INR was 1.2 on Wednesday and her PCP has advised her to increase her doses of Coumadin. She reports no pain benefit after last knee steroid injection under ultrasound guidance. She states she has been swimming and has pain in the posterior aspect of her knee. She is Surinamese speaking and her friend is interpreting today. John Chatterjee MD [address] [facility] , [address], [place], [address], [place] - [facility] 05/28/2015 14:52:36 04/08/2016 text/html She is here for a trochanteric bursal steroid injection under fluoroscopic guidance. She states she has an appointment with Dr. Ely in regards to a hip replacement in May of 2016. She has stopped plavix for the procedure. John Chatterjee MD [address] [facility] , [address], [place], [address], [place] - [facility] [place] 04/13/2016 09:58:16 OBGyn Episode No OBEpisode recorded.
--- OUTSIDE RECORDS SUMMARY | 2024-12-21 10:22 | XMS_ITS | Data Portability ---
Author Organization [facility] Address [address] [place] [address] Assessment Encounter Date Assessment Date Assessment LastModified by Organization Details LastModified Time 09/03/2017 09/03/2017 X-rays of her hip show a well implanted total hip replacement without evidence of complications. Assessment: Satisfactory course, left total hip replacement. Trochanteric bursitis. Recommendation: Injection and physical therapy. She agreed. Her left trochanteric bursa was injected with 2 cc of Depo-Medrol 40. This is well-tolerated. Postinjection care discussed. Physical therapy was prescribed. She will follow-up in a couple of months as needed. [email or web address] Not available 09/03/2017 12:03:14 Plan of Treatment Reminders Order Date Submit Date Provider Last Modified By Organization Details Last Modified Time Details Appointments None record ed. Lab None record ed. Referral None record ed. Procedures None record ed. Surgeries None record ed. Imaging None record ed. Medication Orders None record ed. Patient TargetsNo targets recorded. Patient InstructionsNo instructions recorded. Reason for Referral None Reported. Procedures Surgical History Date Name Laterality Status Provider Name and Address Organization Details Recorded Time 7 CML Hip injection (right/left) completed EMILY FIELDS MD [address] [facility],[address], [place], [address], [facility] 09/03/2017 12:03:26 Imaging Results None recorded. Procedure Notes None recorded. Medical Equipment None Reported. Allergies Allergen ID Allergen Name Allergen Category Reaction Reaction Severity Criticality Documentation Date Start Date Code Code System Note Provider Name and Address Organization Details Recorded Time 13320 Product containin g penicilli n (product) medicatio n Not available Not available Not available 12/21/20162016 99263 8001 SNOMED Comme nt: Recor ded 10/30 2:13P M by Theodora [address], [place]ge [place] Compl eted; Promo azucena; Signi lurdes ce:*; Reaso n:Jimbo g aller gy; Not Available [facility] 03:10:15 29672 aspirin medicatio n Not available Not available Not available 12/21/20162016 1191 RxNorm Comme nt: Recor ded 10/30 2:13P M by Theodora [address], Surge [place] Compl eted; Promo azucena; Signi fican ce:*; Reaso n:Jimbo g aller gy; Not Available [facility] 03:10:15 Medications Name Sig Start Date Stop Date Status Note LastModified by Organization Details LastModified Time buspirone 5 mg tablet active Not Available Not Available No t Available prednisone 10 mg tablet active Not Available Not Available Not Available donepezil 5 mg tablet active Not Available Not Available No t Available clindamycin HCl 300 mg capsule Take 2 capsules by oral route as directed. active Not Available Not Available No t Available trazodone 50 mg tablet active Not Available Not Available Not Available polyethylen e glycol 3350 17 gram oral powder packet active Not Available Not Available Not Available citalopram 10 mg tablet active Not Available Not Available Not Available meloxicam 15 mg tablet active Not Available Not Available Not Available betamethaso ne, augmented 0.05 % topical cream active Not Available Not Available Not Available amlodipine 2.5 mg tablet active Not Available Not Available Not Available triamcinolo ne acetonide 0.1 % topical cream active Not Available Not Available Not Available bupropion HCl SR 100 mg tablet,12 hr sustained-r elease 09/03 completed Not Available Not Available Not Available citalopram 20 mg tablet active Not Available Not Available Not Available lorazepam 0.5 mg tablet active Not Available Not Available Not Available triamcinolo ne acetonide 0.1 % topical ointment active Not Available Not Available Not Available nystatin 100,000 unit/gram topical cream active Not Available Not Available Not Available warfarin 2 mg tablet active Not Available Not Available No t Available buspirone 7.5 mg tablet active Not Available Not Available Not Available omeprazole 20 mg capsule,del ayed release active Not Available Not Available Not Available hydroxyzine HCl 25 mg tablet active Not Available Not Available Not Available hydrochloro thiazide 25 mg tablet active Not Available Not Available No t Available polyethylen e glycol 3350 17 gram/dose oral powder active Not Available Not Available Not Available clotrimazol e 1 % topical cream active Not Available Not Available Not Available escitalopra m 10 mg tablet active Not Available Not Available Not Available escitalopra m 20 mg tablet active Not Available Not Available Not Available lactulose 10 gram/15 mL oral solution active Not Available Not Available Not Available aripiprazol e 1 mg/mL oral solution 09/03 completed Not Available Not Available Not Available diclofenac 1 % topical gel active Not Available Not Available Not Available GaviLyte-G 236 gram-22.74 gram-6.74 gram-5.86 gram oral solution active Not Available Not Available Not Available Linzess 290 mcg capsule active Not Available Not Available Not Available Vitals Date Recorded Body height Provider Name an d Address Organization Details Last Updated DateTime 01/19/2017 162.56 cm Mary Grace Umanzor MA [facility] 01/19/2017 14:06:30 Date Recorded Body height Body mass index (BMI) Body weight Provider Name and Address Organization Details Last Updated DateTime 09/03/2017 162.56 cm 27.5 kg/m2 80268.78 g David Hubbard [facility] 09/03/2017 11:29:42 Date Recorded Pain severity - 0-10 verbal numeric rating [Score] - Reported Provider Name and Address Organization Details Last Updated DateTime 09/03/2017 7 Not Available [facility] 8 05:58:45 Date Recorded Body temperature Provider Name a nd Address Organization Details Last Updated DateTime 09/03/2017 97.7 [degF] Luma Cool [facility] 09/03/2017 11:31:55 Social History Question Answer Notes LastModified by Organizat ion Details LastModified Time Tobacco Smoking Status Never Smoker Mary Grace stout [facility] 01/19/2017 14:06:53 What Was The Date Of Your Most Recent Tobacco Screening? 09/03/2017 Information n ot available 05/17/2019 Sex: Unknown Functional Status None recorded. Mental Status None recorded. Family History Nothing Reported. Medical History No medical history recorded. Gynecological HistoryNo gynecological history recorded. Obstetrics History GPAL:G 0 P 0 0 0 0 Past Encounters Encounter ID Performer Location Encounter Start Date Encounter Closed Date Diagnosis/Indication Diagnosis SNOMED-CT Code Diagnosis ICD10 Code Diagnosis Note [id number] EMILY FIELDS MD [address] [place] [address] 01/19/2017 13:21:15 01/19/2017 14:37:53 History of total hip arthroplasty 3354022851 06 Z96.642 Patient is 3 months status post {{right le ft*}} total hip replacemen t. X-rays from September show good hardware placement. There are no signs of infection. She will continue with outpatient physical therapy. All questions were answered today. They will follow up in {{1* 4 6}} {{weeks ye ar*}}. This patient was seen and examined with Roxanne Garcia PA-C. [id number] EMILY FIELDS MD [address], [address] [place] [address] 09/03/2017 10:26:05 09/08/2017 10:35:02 Health Concerns Section Related Observation LastModified by Organization Detai ls LastModified Time None Recorded Concern Status LastModified by Organization Details LastModified Time None Recorded Advance Directives Directive None Recorded Payers Encounter Date Sequence Insurance Name Policy Number Policy Horne Covered Member ID Horne Member ID Guarantor Name 01/19/2017 1 [place] Reema Yashgur [id number] Reema Yashgur 01/19/2017 2 [place] Reema Yashgur [id number] Reema Yashgur 09/03/2017 1 [place] [employer] Reema Yashgur [id number] Reema Yashgur 09/03/2017 2 [place] Reema Yashgur [id number] Reema Yashgur Notes Date Note Type Note Provider Name and Address Organization Details Recorded Time 01/19/2017 text/html This is a {{76# }} year-old {{male female*}} who presents today status post {{right left*}} total hip replacement on 10/14/2016. Patient is doing well and is not taking any pain medication. She does complain of some numbness in the left hip and thigh. They have {{begun* not begun}} Physical Therapy. They deny any fever, chills, or drainage from the incision site. EMILY FIELDS MD [address] [facility],[address], [place], [address], [facility] 01/19/2017 14:56:32 09/03/2017 text/html This 77-year-old female is almost a year after her left total hip replacement. She was doing well with no pain until a couple months ago when she started to get lateral hip pain which she finds quite bothersome. It hurts when she lies down at night and when she lies on that side. There is pain arising from sitting and climbing stairs. Level walking is better tolerated. She denies fever or chills and feels well. EMILY FIELDS MD [address] [facility],[address], [place], [address], [facility] 09/03/2017 12:03:34 OBGyn Episode No OBEpisode recorded.
== END 2024-12-21 10:12 | disposition home or self-care (01) ==
PROVIDERS: PCP Internal Medicine; Visit Provider Internal Medicine
DX: I10 Essential (primary) hypertension (principal); R73.9 Hyperglycemia, unspecified; F32.9 Major depressive disorder, single episode, unspecified; K58.9 Irritable bowel syndrome, unspecified; M54.16 Radiculopathy, lumbar region

== ENCOUNTER → 2024-12-21 09:23 | Outpatient (BNVA) | payer MEDICARE, MEDICAID, SELFPAY | PROVIDERS: PCP Internal Medicine; Visit Provider Internal Medicine | DX: I10 Essential (primary) hypertension (principal); R73.9 Hyperglycemia, unspecified; F32.9 Major depressive disorder, single episode, unspecified; K58.9 Irritable bowel syndrome, unspecified; M54.16 Radiculopathy, lumbar region | CPT/HCPCS: 96127; 99212 ==

== ENCOUNTER 2025-05-28 09:19 | Outpatient (REF) | payer MEDICARE, MEDICAID, SELFPAY ==
[2025-05-28 13:02] LABS: Appearance Urine Clear; Glucose Urine UA Negative (Negative); PH 7.5 (5.0-9.0); Specific Gravity - Urine 1.010 (1.005-1.025)
[2025-05-28 13:36] LABS: MANUAL DIFF FLAG NO
[2025-05-28 13:51] LABS: Hematocrit 37.6 % (37.0-47.0); Hemoglobin 12.1 g/dl (12.0-16.0); Imm Gran Abs Auto 0.01 X10*3/uL (0.00-0.03); Imm Gran Pct Auto 0.2 % (0.0-0.4); Lymphocytes Absolute Auto 2.2 X10*3/uL (1.2-4.9); Mean Corpuscular HGB Conc 32.2 g/dl (31.0-35.0); Mean Corpuscular Hemoglobin 27.3 pg (27.0-33.0); Mean Corpuscular Volume 84.7 fL (80.0-98.0); NRBC Abs Auto 0.000 X10*3/uL (0.0-0.012); NRBC Pct Auto 0.0 /100WBC (0.0-0.2); Platelet Count 148 X10*3/uL (160-400); Red Blood Count 4.44 X10*6/uL (4.20-5.50); White Blood Count 5.7 X10*3/uL (4.8-10.8)
[2025-05-28 14:06] LABS: Albumin Level 4.3 g/dL (3.5-5.0); Alkaline Phosphatase 51 U/L (39-117); Anion Gap 15 (12-20); Aspartate Amino Transferase 40 U/L (5-31); Blood Urea Nitrogen 12 mg/dL (9-16); Calcium 9.6 mg/dL (8.4-10.2); Carbon Dioxide 27 mmol/L (22-29); Chloride 100 mmol/L (96-108); Cholesterol 202 mg/dL (<200); Estimated Glomerular Filt Rate 60; HDL Cholesterol 60 mg/dL (>40); Potassium 4.0 mmol/L (3.3-5.1); Sodium 138 mmol/L (135-145); Total Protein 7.7 g/dL (6.5-8.0); Triglycerides 82 mg/dL (<150)
[2025-05-28 14:17] LABS: Alanine Aminotransferase 35 U/L (0-31)
[2025-05-28 14:26] LABS: Hemoglobin A1C 132.6471 umol/L; Total Hemoglobin (HGBA1C) 3206.0773 umol/L
== END 2025-05-28 09:20 | disposition home or self-care (01) ==
LOC: HO.HMGCLDS 09:19
PROVIDERS: PCP Internal Medicine; Visit Provider Internal Medicine
DX: I48.91 Unspecified atrial fibrillation (principal); E78.5 Hyperlipidemia, unspecified; E55.9 Vitamin D deficiency, unspecified; F32.9 Major depressive disorder, single episode, unspecified; R73.9 Hyperglycemia, unspecified; R30.0 Dysuria; I10 Essential (primary) hypertension
CPT/HCPCS: 36415; 80053; 80061; 81001; 82306; 83036; 85025; 87086; 99212

== ENCOUNTER 2025-05-28 09:19 | Outpatient (AMB) | payer MEDICARE, MEDICAID, SELFPAY ==
[2025-05-28 09:40] VITALS: BP 116/62; PULSE 92; RESP 18; TEMP 36.8; O2SAT 98; BMI 28.3
--- NOTE | 2025-05-28 09:40 | MHC.PC.OV ---
Vital Signs 05/28/25 09:40 Height 5 ft 4 in Weight 165 lb BMI 28.3 BP 116/62 Blood Pressure Location Lt brachial Position Sitting Respiration 18 Pulse 92 Pulse Source Pulse Oximeter Temp 98.3 F Temp Source Oral Pulse Oximetry (%) 98 Oxygen Delivery Method Room Air Intake Visit Reasons: follow up ER Intake Note: Pt is here today for ER follow up visit. Allergies penicillin V Allergy (Unknown, Verified 05/28/25 09:41) pt does not remember Medication List - Last Reconciled 05/28/25 by Diana Art MD apixaban (Eliquis) 5 mg PO BID cholecalciferol (vitamin D3) 25 mcg PO DAILY diclofenac sodium 1% 2 grams topical QID [Disposable briefs, pull up style As directed] escitalopram oxalate 10 mg PO DAILY hydrochlorothiazide 25 mg PO BID 90 days lactulose 10 grams (15 mL) PO BEDTIME PRN linaclotide (Linzess) mcg PO lorazepam 0.5 mg PO DAILY PRN omeprazole 20 mg PO DAILY trazodone 50 mg PO BEDTIME walker As directed Tobacco use date assessed: 05/28/25 Fall risk assessment: 1 Fall in past year Last assessed Fall Risk: 05/28/25 Dental Screening Dental Screen Date: 05/28/25 Did you have a dental visit in the last 12 months?: Yes Did you have a dental problem in the last 6 months where you did not have access to dental care?: No Was dental information given to patient?: Patient has dentist HPI follow up ER HPI Details Patient presents for the follow-up of ER visit to [facility] for the episode of chest pain and palpitations. Patient was found to be in AFib and a low dose of metoprolol was started but patient developed significant bradycardia. She was started on Eliquis . echocardiogram showed normal ejection fraction mild aortic and mitral regurgitation. Patient denies recurrent palpitations but has been under lot of stress related to her granddaughter in [place]. Patient is established with Psychiatry for chronic anxiety and depression controlled on Lexapro and trazodone. [facility] Medical History Hoarseness Anxiety Poor balance Hyperlipidemia IBS (irritable bowel syndrome) Depression Lumbar radiculopathy Chronic venous insufficiency Osteoarthritis GERD (gastroesophageal reflux disease) Chronic depression HTN (hypertension) Surgical History History of arthroplasty of left hip Family History Father No problems noted. Mother No problems noted. Social History Housing: House Alcohol intake: never Patient Tobacco Use Status: Never used Tobacco e-Cigarette/Vaping Use: Never Used service: No Current occupational status: retired Cognitive needs: No Hearing needs: No Vision needs: No Questionnaire Thrive Questionnaire Date Thrive assessed: 12/21/24 MCKAYLA-7 AMB Questionnaire MCKAYLA-7 Date MCKAYLA - 7 assessed: 12/21/24 Source: Developed by Drs. Jefferson Weber, Anitra Hernandez, Marcin Rosas and colleagues, with an educational pancho from [employer]. Review of Systems Const All systems reviewed & are unremarkable except as noted in HPI and below Eyes Reports no additional complaints ENT Reports no additional complaints Card Reports no additional complaints Resp Reports no additional complaints GI Reports no additional complaints Physical exam (Primary Care) Vital Signs: Last Vital Signs Temp 98.3 F 05/28/25 09:40 Pulse 92 05/28/25 09:40 Resp 18 05/28/25 09:40 BP 116/62 05/28/25 09:40 Pulse Ox 98 05/28/25 09:40 Oxygen Delivery Method Room Air 05/28/25 09:40 BMI result Body Mass Index 28.3 Tobacco/Smoking Status: Tobacco use Status Tobacco use date assessed 05/28/25 05/28/25 09:47 Patient Tobacco Use Status Never used Tobacco 05/28/25 09:40 e-Cigarette/Vaping Use Never Used 05/28/25 09:40 Thrive Assessment: Date of Thrive Assessment Date Thrive assessed 12/21/24 05/28/25 09:40 Const General: no acute distress HENMT Head: Yes normal to inspection Face and sinus: Yes normal facial exam Eyes General: appearance normal, both eyes and all related structures Neck Neck: Yes supple Resp Effort & Inspection: normal respiratory effort Auscultation: clear to auscultation bilaterally Cardio Rhythm: abnormal rhythm irregularly irregular Heart sounds: S1 normal heart sound present and S2 normal heart sound present GI Inspection: Yes normal to inspection Palpation (GI): Soft to palpation Percussion: Yes normal to percussion Auscultation: normal bowel sounds Coding Level of Care Code Est Pt Level 4 (11960) Complex EM visit Add On G2211 Diagnoses A-fib I48.91 HTN (hypertension) I10 Depression F32.9 Assessment & Plan Assessment & Plan (1) A-fib: Comment: New onset 04/2025, started on Eliquis, intolerant to beta mart because of bradycardia, [place] EF, mild aortic and mitral regurgitation Code(s): I48.91 - Unspecified atrial fibrillation Category: Medical Plan: Continue Eliquis patient will see capsule filling machine operator Dr. Leal (2) HTN (hypertension): Comment: BP < 130/80 Code(s): I10 - Essential (primary) hypertension Category: Medical Plan: Continue hydrochlorothiazide (3) Depression: Comment: Controlled on current medications patient is established with Psychiatry Code(s): F32.9 - Major depressive disorder, single episode, unspecified Category: Medical Plan: Follow-up with psychiatry Orders: Orders Urine Culture Today R30.0 - Dysuria Comprehensive Met. Panel Today I10 - Essential (primary) hypertension, I48.91 - Unspecified atrial fibrillation UA w Microscopic Today I10 - Essential (primary) hypertension, I48.91 - Unspecified atrial fibrillation, R30.0 - Dysuria Complete Blood Count Auto Diff Today I10 - Essential (primary) hypertension, I48.91 - Unspecified atrial fibrillation AMB EKG-In Office Today I10 - Essential (primary) hypertension, I48.91 - Unspecified atrial fibrillation Referrals Cardiology Referral I48.91 - Unspecified atrial fibrillation
--- OUTSIDE RECORDS SUMMARY | 2025-05-28 09:45 | XMS_ITS | Encounter Summary ---
Author Organization [facility] Address [address] [place] [address] Care Team Providers Care Panel Installer Name Role Phone Diana Art MD Primary Care Provider [phone] Encounter Details Date Type Department Care Team (Late st Contact Info) Description 05/22/2025 Telephone Gastroenterology - [address] [facility] [address] [place] [phone] Efrain Lucia MD [address] [facility] [address] [place] [address] Social History Tobacco Use Types Packs/Day Years Used Date Smoking Tobacco: Never Assessed Comments Unknown Sex and Gender Information Value Date Recorded Sex Assigned at Not on file Legal Sex Female 10:35 AM EST Gender Identity Not on file Sexual Orientation Not on file documented as of this encounter Progress Notes * Liliam Mcdowell MA - 05/23/2025 8:31 AM EDT Spoke with son, he is aware of Kelly Young message and appreciative. Will call office if issues continue. * Winsome Ramires MA - 05/22/2025 3:08 PM EDT Spoke to son, aware Gilma is off today. Okay to wait until tomorrow. Pt is currently taking Linzess 145mcg but is not helping, would like to increase. Please advise * Carolyn Bucio - 05/22/2025 10:23 AM EDT Pt son is calling stating pt IBS is getting worst and she would like to increase her Linzess medication. Pt son is wondering is Kelly Young can increase the dosage documented in this encounter Plan of Treatment Upcoming Encounters Date Type Department Care Team (Late st Contact Info) Description 07/02/2025 1:20 PM EDT Office Visit Gastroenterology - [address] [place] [address] Gilma Kaur PA [address] [place] [address] documented as of this encounter Visit Diagnoses Not on filedocumented in this encounter Care Teams Panel Installer Relationship Specialty Start Date End Date Diana Art MD [address] [place] [phone] PCP - General Internal Medicine 04/30/25 documented as of this encounter
== END 2025-05-28 12:32 | disposition home or self-care (01) ==
LOC: HO.HMCC 09:20
PROVIDERS: PCP Internal Medicine; Visit Provider Internal Medicine
DX: I48.91 Unspecified atrial fibrillation (principal); I10 Essential (primary) hypertension; F32.9 Major depressive disorder, single episode, unspecified

== ENCOUNTER → 2025-06-01 23:59 | Outpatient (BNV) | payer MEDICARE, MEDICAID, SELFPAY | PROVIDERS: PCP Internal Medicine; Visit Provider Internal Medicine | DX: I48.91 Unspecified atrial fibrillation (principal); I48.92 Unspecified atrial flutter; N39.0 Urinary tract infection, site not specified | CPT/HCPCS: G0180 ==

== ENCOUNTER 2025-08-22 09:28 | Outpatient (AMB) | payer MEDICARE, MEDICAID, SELFPAY ==
[2025-08-22 10:01] VITALS: BP 126/64; PULSE 77; RESP 14; TEMP 36.6; O2SAT 99; BMI 26.8
--- NOTE | 2025-08-22 10:01 | A.OFFVIS_ITS ---
Intake Vital Signs 08/22/25 10:01 Height 5 ft 4 in Weight 156 lb BMI 26.8 BP 126/64 Blood Pressure Location Rt brachial Position Sitting Respiration 14 Pulse 77 Pulse Source Pulse Oximeter Temp 97.9 F Temp Source Oral Pulse Oximetry (%) 99 Oxygen Delivery Method Room Air Intake Visit Reasons: SWV G0439 Intake Note: Pt is here today for AWV. Pt states that she has been feeling very weak, she has no appetite, constipation, she has trouble with dentures. Pt states that she was at [facility] back in April. Pt states that she is fasting. Allergies penicillin V Allergy (Unknown, Verified 08/22/25 10:02) pt does not remember polyethylene glycol 3350 (From Miralax) Adverse Reaction (Verified 08/22/25 10:33) face swelling Medication List - Last Reconciled 08/22/25 by Diana Art MD apixaban (Eliquis) 5 mg PO BID cholecalciferol (vitamin D3) 25 mcg PO DAILY diclofenac sodium 1% 2 grams topical QID [Disposable briefs, pull up style As directed] escitalopram oxalate 10 mg PO DAILY hydrochlorothiazide 25 mg PO BID 90 days lactulose 10 grams (15 mL) PO BEDTIME PRN linaclotide (Linzess) mcg PO lorazepam 0.5 mg PO DAILY PRN omeprazole 20 mg PO DAILY [rollator walker with seat and brakes As directed] trazodone 50 mg PO BEDTIME walker As directed HPI SWV G0439 HPI Details Patient presents for annual visit. She complains of worsening depression and has been established with psychiatrist and counselor. Patient reports chronic constipation getting worse over last month. She has been eating less fiber rich diet. Patient denies nausea vomiting hematochezia melena. She has been taking milk of magnesia weekly to clean herself Initiated the conversation about Advanced Directives. Advanced Directives help? patients prepare for current and future decisions about their medical treatment? and place of care. Discussed with patient that it is a process where a patients? current condition and prognosis are reviewed, their wishes for information? regarding their illness are elicited, and likely medical dilemmas are presented? and options discussed. The form can be amended as needed, reviewed yearly and? make changes as needed IPPE/AWV ? year old presents? for her ? Annual? Wellness Visit, initial visit.? Medical / Social History Reviewed? Past Medical History ?Yes? . ? [place]? of Care / Care Team list updated ?Yes . ? Surgical/Hospitalization? History ?Yes . ? Current Medications? (including OTC and supplements) ?Yes . ? Family History ?Yes? . ? Tobacco? Control form ?Yes . ? AUDIT-C (Alcohol use) form? ?Yes . ? Illicit drug use in Social? History ?Yes . ? Current diagnosis of? depression? ?No ? Appropriate PHQ2/PHQ9? completed ?Yes . ? Data entered by ?Medical? Commercial Real Estate Assistant and reviewed by provider ? Fall Risk ? Fall? History? Have you had any falls with? injury in the past year? ?No . ? Have you had two or more? falls in the past year? ?No . ? Fall Risk Assessment: ?No? falls in the past year . ? HRA filled out by? the patient, reviewed by Provider and scanned. ? IPPE/AWV ? Balance? Romberg? ?Yes . ? Tandem? walk ?Yes . ? Walk and? Turn ?Yes . ? Rise from? sit to stand ?Yes . ?Vision? Corrective? lens ?Yes ? Vision? screen ? Up-to-date, has an appointment [] for vision? screening and glaucoma screening ?Hearing? Whisper? test ?pass .? Initiated the conversation about Advanced Directives. Advanced Directives help? patients prepare for current and future decisions about their medical treatment? and place of care. Discussed with patient that it is a process where a patients? current condition and prognosis are reviewed, their wishes for information? regarding their illness are elicited, and likely medical dilemmas are presented? and options discussed. The form can be amended as needed, reviewed yearly and? make changes as needed Written? Plan?Completed. See Patient? Documents. FORMERLY [facility], [facility] Medical History (Updated 08/22/25 @ 15:39 by Diana Art MD) A-fib Constipation Hoarseness Anxiety Poor balance Hyperlipidemia IBS (irritable bowel syndrome) Depression Lumbar radiculopathy Chronic venous insufficiency Osteoarthritis GERD (gastroesophageal reflux disease) Chronic depression HTN (hypertension) Surgical History History of arthroplasty of left hip Family History Father No problems noted. Mother No problems noted. Social History Housing: House Alcohol intake: never Patient Tobacco Use Status: Never used Tobacco e-Cigarette/Vaping Use: Never Used service: No Current occupational status: retired Cognitive needs: No Hearing needs: No Vision needs: No Questionnaire Medicare Wellness Checkup What is your age?: 80 or older What gender do you identify with?: female During the past 4 weeks, how much have you been bothered by emotional problems such as feeling anxious, depressed, irritable, sad or downhearted, and blue?: quite a bit During the past 4 weeks, has your physical & emotional health limited your social activities with family, friends, neighbors, or groups?: quite a bit During the past 4 weeks, how much bodily pain have you generally had?: moderate pain During the past 4 weeks, was someone available to help you if you needed & wanted help?: yes, as much as I wanted During the past 4 weeks, what was the hardest physical activity you could do for at least 2 minutes?: light Can you get to places out of walking distance without help? (For eg., can you travel alone on buses, taxis or drive your car?): No Can you go shopping for groceries or clothes without someone's help?: No Can you prepare your own meals?: No Can you do your housework without help?: No Because of any health problems, do you need the help of another person with your personal care needs such as eating, bathing, dressing or getting around the house?: Yes Can you handle your own money without help?: Yes During the past 4 weeks, how would you rate your health in general?: good During the past 4 weeks how have things been going for you?: pretty bad Are you having difficulties driving your car?: not applicable, I don't use a car Do you always fasten your seat belt when you are in a car?: yes, usually During past 4 weeks, have you been bothered by the following: never: Sexual problems?, Trouble eating well?, Problems using the telephone? and Tiredness or fatigue? and sometimes: Falling or dizzy when standing up and Teeth or denture problems? Have you fallen 2 or more times in the past year?: Yes Are you afraid of falling?: No Are you a smoker?: no During the past 4 weeks, how many drinks of wine, beer, or other alcoholic beverages did you have?: no alcohol at all Do you exercise for about 20 minutes 3 or more times a week?: yes, most of the time Have you been given information to help with the following?: no: Hazards in your house that might hurt you? and no: Keeping track of your medications? How often do you have trouble taking medicines the way you have been told to take them?: I always take medicine as prescribed How confident are you that you can control & manage most of your health problems?: very confident What is your race?: White Mini Mental State Exam (MMSE) Orientation What is the (year) (season) (date) (day) (month)?: year, season, date, day and month Where are we (state) (county) (town or city) (hospital) (floor)?: state, county, town or city, hospital/clinic and floor Registration Name of 3 unrelated objects clearly and slowly, then ask patient to repeat all 3 of them. (1st repeat determines score. Make sure they can repeat all three): object 1, object 2 and object 3 Attention & Calculation (CHOOSE ONE) Spell WORLD backwards (DLROW): 5 letters Recall Ask patient to repeat the 3 items from question #3.: object 1, object 2 and object 3 Language Show patient a wristwatch & ask what it is. Repeat for pencil.: watch and pencil Ask the patient to repeat the phrase 'No ifs, ands, or buts' after you.: correct Ask the patient to 'take a piece of paper with their right hand' 'fold paper in half' 'place paper on floor': take paper in right hand, fold paper in half and place paper on floor Print the sentence 'CLOSE YOUR EYES' on a piece. If patient actually closes eyes then score.: followed written direction Give patient a blank piece of paper & ask to write a sentence. Score if it contains a noun & verb.: sentence contains subject and verb Score Score: 29 PHQ-9 Over the last 2 weeks, how often have you been bothered by any of the following problems? 1. Little interest or pleasure in doing things: not at all 2. Feeling down, depressed, or hopeless: more than half the days 3. Trouble falling or staying asleep, or sleeping too much: not at all 4. Feeling tired or having little energy: several days 5. Poor appetite or overeating: not at all 6. Feeling bad about yourself - or that you are a failure or have let yourself or your family down: not at all 7. Trouble concentrating on things, such as reading the newspaper or watching television: not at all 8. Moving or speaking so slowly that other people could have noticed. Or the opposite - being so fidgety or restless that you have been moving around a lot more than usual: not at all 9. Thoughts that you would be better off or of hurting yourself in some way: not at all Total score: 3 Depression Screening Interpretation: Negative Depression Screening Done: Yes Source: Developed by Drs. Jefferson Weber, Anitra Hernandez, Marcin Rosas and colleagues, with an educational pancho from [employer]. Review of Systems Const All systems reviewed & are unremarkable except as noted in HPI and below Eyes Reports no additional complaints ENT Reports no additional complaints Card Reports no additional complaints Resp Reports no additional complaints GI Reports no additional complaints Reports no additional complaints Physical Exam Vital Signs: Last Vital Signs Temp 97.9 F 08/22/25 10:01 Pulse 77 08/22/25 10:01 Resp 14 08/22/25 10:01 BP 126/64 08/22/25 10:01 Pulse Ox 99 08/22/25 10:01 Oxygen Delivery Method Room Air 08/22/25 10:01 BMI result Body Mass Index 26.8 Const General: no acute distress HEENT Head: Yes normal to inspection Eyes General: appearance normal, both eyes and all related structures Neck Neck: Yes no lymphadenopathy and Yes supple Resp Effort & Inspection: normal respiratory effort Auscultation: clear to auscultation bilaterally Cardio Rhythm: regular rhythm Heart sounds: S1 normal heart sound present and S2 normal heart sound present GI Inspection: Yes normal to inspection Palpation (GI): Soft to palpation Percussion: Yes normal to percussion Auscultation: normal bowel sounds Extrem General: Yes no clubbing, cyanosis or edema Assessment & Plan Assessment & Plan (1) HTN (hypertension): Comment: BP < 130/80 Code(s): I10 - Essential (primary) hypertension Plan: Continue current medication (2) Vitamin D deficiency: Code(s): E55.9 - Vitamin D deficiency, unspecified Plan: Continue vitamin-D (3) Hyperglycemia: Code(s): R73.9 - Hyperglycemia, unspecified Plan: ADA diet increase physical activity discussed with the patient she will have a fasting blood work including A1c (4) Constipation: Comment: Used see GI at [facility]. Taking Linzess fiber supplement Code(s): K59.00 - Constipation, unspecified Plan: Patient was advised to increase fiber intake and Linzess 2 higher dose of 290 mg. Patient requested referral to inside sales lead (5) Depression: Comment: patient is established with Psychiatry Code(s): F32.9 - Major depressive disorder, single episode, unspecified Plan: FOLLOW-UP WITH PSYCHIATRY (6) A-fib: Comment: New onset 04/2025, started on Eliquis, intolerant to beta mart because of bradycardia, [place] nl EF, mild aortic and mitral regurgitation, Holter ordered by PVC Code(s): I48.91 - Unspecified atrial fibrillation Plan: Continue Eliquis follow-up with the Cardiology for Holter results Orders: Orders Magnesium Today E55.9 - Vitamin D deficiency, unspecified, I10 - Essential (primary) hypertension, R73.9 - Hyperglycemia, unspecified Hemoglobin A1c Today E55.9 - Vitamin D deficiency, unspecified, I10 - Essential (primary) hypertension, R73.9 - Hyperglycemia, unspecified Vitamin D 25-OH Total Today E55.9 - Vitamin D deficiency, unspecified, I10 - Essential (primary) hypertension, R73.9 - Hyperglycemia, unspecified Comprehensive Met. Panel Today E55.9 - Vitamin D deficiency, unspecified, I10 - Essential (primary) hypertension, R73.9 - Hyperglycemia, unspecified Referrals Gastroenterology Referral K59.00 - Constipation, unspecified Medications: New apixaban (Eliquis) 5 mg PO BID 60 tabs 0RF Refilled lactulose 10 grams (15 mL) PO BEDTIME PRN 1,200 mL 0RF constipation Quality Reporting (2019) Depression/Bipolar (159/160/161/177) PHQ-9: Total score: 3 Coding Level of Care Code Medicare Subsequent (G0439) Diagnoses HTN (hypertension) I10 Vitamin D deficiency E55.9 Hyperglycemia R73.9 Constipation K59.00 Depression F32.9 A-fib I48.91 CPT Codes Advance Care Planning - Advance Care Planning discussion: On file, no changes ([id number]) Advance Care Planning - Time spent: 1-15 minutes, on File ([id number]) Advance Care Planning Advance Care Planning discussion: On file, no changes Forms completed: Health Care Proxy Time spent: 1-15 minutes, on File Did not discuss due to Cultural/Spiritual beliefs: Yes
--- OUTSIDE RECORDS SUMMARY | 2025-08-22 11:11 | XMS_ITS | Clinical Summary ---
Author Organization [facility] [address] [facility] Address [address] [place] [address] Phone Care Team Providers Care Practical Nurse Name Role Phone Diana Art MD Primary Care Provider [phone] Allergies Active Allergy Reactions Criticality Noted Date Comments Penicillins 07/05/2025 Medications linaCLOtide (Linzess) 290 mcg capsuleIndication s:Irritable bowel syndrome with constipation Take 1 capsule (290 mcg total) by mouth 1 (one) time each day before breakfast. 90 each 3 5 05/23/20 26 Active apraclonidine (IOPIDINE) 0.5 % ophthalmic solution INSTILL 1-2 DROPS INTO AFFECTED EYE 3 TIMES A DAY 5 Active escitalopram (LEXAPRO) 10 mg tablet Take 1 tablet (10 mg total) by mouth 1 (one) time each day. 5 Active hydroCHLOROthiazi de (HYDRODIURIL) 25 mg tablet Take 1 tablet (25 mg total) by mouth 1 (one) time each day. 5 Active cholecalciferol, vitamin D3, (VITAMIN D3 ORAL) Take by mouth 1 (one) time each day. Active traZODone (DESYREL) 50 mg tablet Take 1 tablet (50 mg total) by mouth at bedtime. Active LORazepam (ATIVAN) 0.5 mg tablet Take 1 tablet (0.5 mg total) by mouth 2 (two) times a day if needed for anxiety. Max Daily Amount: 1 mg 5 Active Eliquis 5 mg tablet Take 1 tablet (5 mg total) by mouth 2 (two) times a day. 180 tablet 3 5 Active linaCLOtide (Linzess) 145 mcg capsuleIndication s:Chronic idiopathic constipation Take 1 capsule (145 mcg total) by mouth 1 (one) time each day before breakfast. 90 each 3 5 07/05/20 26 Active docusate sodium (COLACE) 100 mg capsuleIndication s:Chronic idiopathic constipation Take 3 capsules (300 mg total) by mouth 1 (one) time each day. 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 docusate sodium (COLACE) 100 mg capsule; Take 3 capsules (300 mg total) by mouth 1 (one) time each day. Primary hypertension 07/05/2025 Assessment & Plan (07/05/2025 3:51 PM EDT): Blood pressure well-controlled on hydrochlorothiazide. Continue Bradycardia 07/05/2025 Assessment & Plan (07/05/2025 3:52 PM EDT): It does not seem as though the patient ever has symptomatic bradycardia, denying historical episodes of dizziness or lightheadedness. She has never fainted. Her son tells me that he, too, has a propensity towards a low heart rate. Her heart rate is currently well-controlled in her atrial fibrillation, and a decision was made at the time of her diagnosis to hold off on AV anabela blocking agents. Will obtain a 14- day monitor as above and make a decision if she would benefit from a low-dose AV anabela blocking agent based on the results. A-fib (CMS/HCC V24, CMS/HCC V28) 07/03/2025 Overview (07/05/2025): - Diagnosed 04/2025 - Anticoagulated with apixaban - Not on AV anabela blocking agents due to historical bradycardia Assessment & Plan (07/05/2025 3:50 PM EDT): The patient is back in atrial fibrillation. She was discharged from the hospital in sinus rhythm. However, she is auto rate controlled and asymptomatic. She remains anticoagulated with apixaban and has not had any bleeding issues. Despite her age, she does not qualify for dose reduction based on her weight or creatinine. Will obtain 14-day monitor to evaluate atrial fibrillation burden and heart rate control. Historically, she has had episodes of bradycardia, but tells me that her heart rate may only have been in the 50s. This may not be preclusive to AV anabela blocking agents, but will await her monitor to make this determination. For now, she does not appear to have any excess volume on board. Palpitations 07/03/2025 Resolved Problems Problem Noted Date Diagnosed Date Resolved Date Elevated troponin 07/03/2025 07/05/2025 Encounters Date Type Department Care Team Description 07/05/2025 10:30 AM EDT Office Visit Gastroenterology - [address] [place] [address] Gilma Kaur PA Chronic idiopathic constipation (Primary Dx) 07/04/2025 2:10 PM EDT Office Visit [facility] Cardiology [facility] [address] [facility] [address] [place] [address] Sharron Davidson NP Atrial fibrillation, unspecified type (CMS/HCC V24, CMS/HCC V28) (Primary Dx); Primary hypertension; Bradycardia 05/30/[address] [facility] Cardiology [facility] - [facility] [address] [place] [address] Diana Art MD 05/22/2025 Telephone Gastroenterology - [address] [facility] [address] [place] [address] Efrain Lucia MD from Last 3 Months Medical History Medical History Date Comments Hypertension GERD (gastroesophageal reflux disease) Anxiety Poor balance Osteoarthritis Hyperlipidemia Lumbar radiculopathy Hoarseness Depression Chronic venous insufficiency JODY (acute kidney injury) ([facility] V24) Weakness Bradycardia, sinus Urinary tract infection DVT (deep venous thrombosis) ([facility] V24, [facility]/ [facility] V28) IBS (irritable bowel syndrome) Social History Tobacco Use Types Packs/Day Years Used Date Smoking Tobacco: Never Smokeless Tobacco: Never Comments Unknown Sex and Gender Information Value Date Recorded Sex Assigned at Not on file Legal Sex Female 10:35 AM EST Gender Identity Not on file Sexual Orientation Not on file Obstetrics History Last Filed Vital Signs Vital Sign Reading Time Taken Comments Blood Pressure 124/80 07/04/2025 2:27 PM EDT Pulse 76 07/04/2025 2:27 PM EDT Temperature - - Respiratory Rate - - Oxygen Saturation 96% 07/04/2025 2:27 PM EDT Inhaled Oxygen Concentration - - Weight 74.7 kg (164 lb 9.6 oz) 07/05/2025 10:38 AM EDT Height 160 cm (5' 3 ) 07/05/2025 10:38 AM EDT Body Mass Index 29.16 07/05/2025 10:38 AM EDT Plan of Treatment Health Maintenance Due Date Last Done Comments DTaP,Tdap,and Td Vaccines (1 - Tdap) 1959 Pneumococcal Vaccine: 50+ Years (1 of 1 - PCV) 1989 Zoster Vaccines (1 of 2) 1989 RSV Immunization Adult Patients (1 - 1-dose 75+ series) 2014 Depression Screening 10/25/2024 Cholesterol Screening (Lipid Panel) 04/30/2025 Falls Risk Assessment 04/30/2025 Medicare Annual Wellness Visit 04/30/2025 Osteoporosis Screening (Bone Density Screening) 04/30/2025 Social Influencers of Health Screening 04/30/2025 COVID-19 Vaccine ( season) 2025 03/04/2022, 08/13/2021, 11/30/2020, Additional history exists Influenza Vaccine (#1) 2025 3, 11/03/2021, 09/08/2019, Additional history exists Hypertension/CHF/CAD Annual BMP Blood Test 07/05/2025 HIB Vaccines Aged Out No longer eligi ble based on patient's age to complete this topic HPV Vaccines Aged Out No longer eligi ble based on patient's age to complete this topic Hepatitis A Vaccines Aged Out No long er eligible based on patient's age to complete this topic Hepatitis B Vaccines Aged Out No long er eligible based on patient's age to complete this topic IPV Vaccines Aged Out No longer eligi ble based on patient's age to complete this topic MMR Vaccines Aged Out No longer eligi ble based on patient's age to complete this topic Meningococcal ACWY Vaccine Aged Out N o longer eligible based on patient's age to complete this topic Meningococcal B Vaccine Aged Out No l onger eligible based on patient's age to complete this topic RSV Immunization Patients Under 20 months Aged Out No longer eligible based on patient's age to complete this topic Varicella Vaccines Aged Out No longer eligible based on patient's age to complete this topic Procedures Procedure Name Priority Date/Time Associated Diagnosis Comments ECG 12-LEAD Routine 07/05/2025 4:05 PM EDT Atrial fibrillation, unspecified type (CMS/HCC V24, CMS/HCC V28) from Last 3 Months Results * ECG 12 lead (07/05/2025 4:05 PM EDT) Ventricular Rate ECG 76 BPM GEMUSE Atrial Rate 74 BPM GEMUSE QRS Duration 80 ms GEMUSE Q-T Interval 390 ms GEMUSE QTc 438 ms GEMUSE R [place] 11 degrees GEMUSE T [place] 0 degrees GEMUSE ECG Interpretation Atrial fibrillation Abnormal ECG No previous ECGs available p afib, auto rate controlled on anticoagulation Confirmed by KEISHA MAYORGA ([id number]) on 07/08/2025 12:26:06 AM GEMUSE 07/04/2025 2:35 PM EDT 07/08/2025 12:26 AM EDT us Sharron Davidson ACCOUNTING SYSTEMS ANALYST ECG ORDERABLES Edited Result - Final GEMUSE from Last 3 Months Insurance * Guarantor: Eleanorcalvinguerline Chase Account Type Relation to Patient Date of Phone Billing Address Personal/Family Self [address] [place] [address] MEDICAID - [place] MEDICARE Care Teams Practical Nurse Relationship Specialty Start Date End Date Diana Art MD [address] [place] [address] PCP - General Internal Medicine 04/30/25
== END 2025-08-22 10:57 | disposition home or self-care (01) ==
LOC: HO.HMCC 09:29
PROVIDERS: PCP Internal Medicine; Visit Provider Internal Medicine
DX: Z00.00 Encounter for general adult medical examination without abnormal findings (principal); I48.91 Unspecified atrial fibrillation; I10 Essential (primary) hypertension; E55.9 Vitamin D deficiency, unspecified; R73.9 Hyperglycemia, unspecified; K59.00 Constipation, unspecified; F32.9 Major depressive disorder, single episode, unspecified

== ENCOUNTER 2025-08-22 09:28 | Outpatient (REF) | payer MEDICARE, MEDICAID, SELFPAY ==
[2025-08-22 13:54] LABS: Alanine Aminotransferase 27 U/L (0-31); Albumin Level 4.4 g/dL (3.5-5.0); Alkaline Phosphatase 52 U/L (39-117); Anion Gap 12 (12-20); Aspartate Amino Transferase 28 U/L (5-31); Blood Urea Nitrogen 14 mg/dL (9-16); Calcium 9.8 mg/dL (8.4-10.2); Carbon Dioxide 29 mmol/L (22-29); Chloride 104 mmol/L (96-108); Estimated Glomerular Filt Rate 56; Magnesium 2.1 mg/dL (1.6-2.6); Potassium 4.1 mmol/L (3.3-5.1); Sodium 141 mmol/L (135-145); Total Protein 7.5 g/dL (6.5-8.0)
--- OUTSIDE RECORDS SUMMARY | 2025-08-22 13:54 | XMS_ITS | Data Portability ---
Author Organization [facility], [place] [facility] Address [address] [place] [address] Assessment Encounter Date Assessment Date Assessment LastModified [...] injection (right/left) completed EMILY FIELDS MD [address] [facility],[address], [place], [address], [facility] 09/03/2017 12:03:26 Imaging Results None recorded. Procedure Notes None recorded. Medical Equipment None Reported. Allergies Allergen ID Allergen Name Allergen Category Reaction Reaction Severity Criticality Documentation Date Start Date Code Code System Note Provider Name and Address Organization Details Recorded Time 00749 Product containin g penicilli n (product) medicatio n Not available Not available Not available 12/21/20162016 31413 8001 SNOMED Comme nt: Recor ded 10/30 2:13P M by Theodora [address], Surge ry Compl eted; Promo azucena; Signi ficfunmilayo ce:*; Reaso n:Jimbo g aller gy; Not Available [facility] 03:10:15 12695 aspirin medicatio n Not available Not available Not available 12/21/20162016 1191 RxNorm Comme nt: Recor ded 10/30 2:13P M by Theodora Alvar[address], Surge ry Compl eted; Promo azucena; Signi lurdes ce:*; Reaso n:Jimbo g aller gy; Not Available [facility] 7 03:10:15 Medications Name Sig Start Date Stop [...] DateTime 01/19/2017 162.56 cm Mary Grace Umanzor [facility] 01/19/2017 14:06:30 Date Recorded Body temperature Provider Name a nd Address Organization Details Last Updated DateTime 09/03/2017 97.7 [degF] Luma Cool [facility] 09/03/2017 11:31:55 Date Recorded Body height Body mass index (BMI) Body weight Provider Name and Address Organization Details Last Updated DateTime 09/03/2017 162.56 cm 27.5 kg/m2 19272.78 g David Hubbard [facility] 09/03/2017 11:29:42 Date Recorded Pain severity - 0-10 verbal numeric rating [Score] - Reported Provider Name and Address Organization Details Last Updated DateTime 09/03/2017 7 Not Available [facility] 8 05:58:45 Social History Question Answer Notes LastModified by Organizat ion Details LastModified Time Tobacco Smoking Status Never Smoker Mary Grace Umanzor [facility] 01/19/2017 14:06:53 What Was [...] Diagnosis SNOMED-CT Code Diagnosis ICD10 Code Diagnosis IMO Codes Diagnosis Note [id number] EMILY FIELDS MD [address],[facility] [address] [place] [address] 01/19/2017 13:21:15 01/19/2017 14:37:53 History of total hip arthroplasty 2787843356 06 Z96.642 Patient is 3 months status post left total hip replacemen t. X-rays from September show good hardware placement. There are no signs of infection. She will continue with outpatient physical therapy. All questions were answered today. They will follow up in 1 year. This patient was seen and examined with Roxanne Garcia PA-C. [id number] EMILY FIELDS MD [address],[facility] [address] [place] [address] 09/03/2017 10:26:05 09/08/2017 10:35:02 Health Concerns Section Related Observation LastModified by Organization Detai ls LastModified Time None Recorded Concern Status LastModified by Organization Details LastModified Time None Recorded Advance Directives Directive None Recorded Payers Insurance Date Sequence Insurance Name Policy Number Policy Horne Covered Member ID Horne Member ID Guarantor Name 08/31/2017 2 [place] [id number] Reema Yagur 08/31/2017 1 [place]IC[place] [employer] SERVICES Reema Yashgur [id number] Reema Yacalvinguanthony Notes Date Note Type Note Provider Name and Address Organization Details Recorded Time 01/19/2017 text/html ROS as noted in the HPI This is a 76 year-old female who presents today status post left total hip replacement on 10/14/2016. Patient is doing well and is not taking any pain medication. She does complain of some numbness in the left hip and thigh. They have begun Physical Therapy. They deny any fever, chills, or drainage from the incision site. EMILY FIELDS MD [address] [facility],[address], [place], [address], [facility] 01/19/2017 14:56:32 09/03/2017 text/html [...] and feels well. EMILY FIELDS MD [address] [facility],[address], [place], [address], [facility] 09/03/2017 12:03:34 OBGyn Episode No OBEpisode recorded.
--- OUTSIDE RECORDS SUMMARY | 2025-08-22 13:54 | XMS_ITS | Data Portability ---
Author Organization [facility], PAIN OFFICE Address [address] [place] [address] Care Team Providers Care Agricultural Mechanic Name Role Phone ROSA ARCOS Primary Care Provider Assessment Encounter Date Assessment Date Assessment LastModified by Organization Details LastModified Time 07/11/2014 07/11/2014 Reema Joshua is a 74 year old woman with complaints of left hip pain and low back pain radiating into left lower extremity. She is here for a follow up.She is having some pain benefit with celebrex and I will prescribe the same for her.She is going to trial acupuncture in July 2014. I recommend arepeat lumbar epiduralsteroid injection underfluoroscopicg uidance.The risks andbenefits of the procedure were discussed in detail. She wishes to proceed. An appointment has been booked for the same one month after trial of acupuncture.She needs a sales route driver on the day of the procedure. [email or web address] Not available 07/11/2014 13:45:13 04/15/2015 04/15/2015 Reema Joshua is a 74 year old woman with complaints of left hip pain and left kneepainand low back pain radiating into left lower extremity.She now has mainly left knee pain. I recommend a left knee steroid injection under ultrasound guidance. The risks andbenefits of the procedure were discussed in detail. She wishes to proceed.An appointment has been booked for the same. She needs a sales route driver on the day of the procedure. She will also benefit from a left hip injection under fluoroscopic guidance in four weeks. She has signed a release and will obtain information from Dr. Angela's office. [email or web address] Not available 04/19/2015 10:26:44 04/23/2015 04/23/2015 Reema Joshua is a 74 year old woman with complaints of left hip pain and left kneepainand low back pain radiating into left lower extremity.She now has mainly left knee pain.She is here for a left knee steroid injection under ultrasound guidance. The risks andbenefits of the procedure were discussed in detail. She wishes to proceed. She will follow up for a left hip injection under fluoroscopic guidance in four weeks. [email or web address] Not available 04/23/2015 09:41:50 05/27/2015 05/27/2015 Reema Joshua is a 74 year old woman with complaints of left hip pain and left kneepainand low back pain radiating into left lower extremity.She was scheduled for a left hip injection under fluoroscopic guidance today. She states she was started on Coumadin one week ago for phlebitis. She will need to come off Coumadin for 5 days for the above procedure. I have left a message for her PCP in regards to the feasibility of stopping Coumadin and when it would be safe to do so. I have encouraged her to continue withaquatic exercises . [email or web address] Not available 05/28/2015 14:52:29 04/08/2016 04/08/2016 Reema Joshua is a 75 year old woman with complaints of left hip pain and low back pain radiating into left lower extremity. She now has mainly lefthip pain. She is here for a left hip trochanteric bursal steroid injection under fluoroscopic guidance.The risks and benefits of the procedure were discussed in detail. She wishes to proceed. She can restart her plavix today. She can follow up as needed. [email or web address] Not available 04/08/2016 13:31:08 Plan of Treatment Reminders Order Date Submit Date Provider Last Modified By Organization Details Last Modified Time Details Appointments None recorded. Lab None recorded. Referral None recorded. Procedures None recorded. Surgeries None recorded. Imaging None recorded. Medication Orders Celebrex 200 mg capsule 2013 014 [email or web address] [id number], [address], [place], [address], 5 10:53:12 Patient TargetsNo targets recorded. Patient Instructions Encounter Date Encounter Id Patient Instructions Last Modified By Organization Details Last Modified Time 07/11/2014 [id number] She was advised against bed rest lasting longer than four days and to continue activities as tolerated. [email or web address] Not available 07/11/2014 13:40:17 04/15/2015 [id number] She was advised against bed rest lasting longer than four days and to continue activities as tolerated. [email or web address] Not available 04/19/2015 10:24:28 04/23/2015 [id number] She was advised against bed rest lasting longer than four days and to continue activities as tolerated. [email or web address] Not available 04/23/2015 09:39:12 05/27/2015 [id number] She was advised against bed rest lasting longer than four days and to continue activities as tolerated. [email or web address] Not available 05/28/2015 09:35:33 04/08/2016 [id number] She was advised against bed rest lasting longer than four days and to continue activities as tolerated. [email or web address] Not available 04/08/2016 13:28:34 Reason for Referral None Reported. Problems Name Problem SNOMED Code Status Onset Date Resolution Date Notes Provider Name and Address Organization Details Recorded Time Pain of hip region [id number] Claire jama MD [address] [facility] , [address], [facility] [place], [address], [place] [facility] 6 14:06:08 Lumbosacral radiculitis [id number] Claire jama MD [address] [facility] , [address], [facility] [place], [address], [place] [facility] 6 14:06:09 Displacement of lumbar intervertebral disc without myelopathy [id number] lCaire jama MD [address] , [address], [facility] [place], [address], [place] [facility] 6 14:06:09 Osteoarthritis of knee [id number] Claire jama MD [address] [facility] , [address], [facility] [place], [address], [place] [facility] 6 13:25:37 Problem Notes None recorded. Procedures Surgical History Date Name Laterality Status Provider Name and Address Organization Details Recorded Time 04/08/20 16 Greater Trochanteric Bursa Steroid Injection completed John Chatterjee MD [address] [facility] , [address], [place], [address], [place] [facility] 04/08/2016 13:31:08 04/23/20 15 Intra-articular Knee Steroid Injection completed John Chatterjee MD [address] [facility] , [address], [place], [address], [place] [facility] 04/23/2015 09:41:51 03/12/20 14 Intra-articular Hip Steroid Injection completed John Chatterjee MD [address] [facility] , [address], [place], [address], [place] [facility] 03/12/2014 10:50:42 01/30/20 14 Lumbar Epidural steroid injection under fluoroscopic guidance completed John Chatterjee MD [address] [facility] , [address], [place], [address], [place] [facility] 01/31/2014 09:27:34 Imaging Results None recorded. Procedure Notes None recorded. Medical Equipment None Reported. Allergies Allergen ID Allergen Name Allergen Category Reaction Reaction Severity Criticality Documentation Date Start Date Code Code System Note Provider Name and Address Organization Details Recorded Time 7961 Product containin g penicilli n (product) medicatio n hives rash Not available Not available Not available 01/09/2014 36791 8001 SNOMED Melany Mckinleyzier girish, [place] - [facility] 4 08:55:16 7962 aspirin medicatio n hives rash Not available Not available Not available 01/09/2014 1191 RxNorm Melany Mckinleyzier girish, [place] - [facility] 4 08:55:16 Medications Name Sig Start Date Stop Date Status Note LastModified by Organization Details LastModified Time prednisone tab 10mgpredniso ne active Not Available Not Available Not Available venlafaxine cap 37.5mg active Not Available Not Available N ot Available ibuprofen tab 600mgibuprof en active Not Available Not Available Not Available venlafaxine cap 75mg er active Not Available Not Available Not Available zovirax cre 5%zovirax active Not Available Not Available No t Available omeprazole cap 20mgomeprazo le active Not [...] Not Available Not Available No t Available warfarin sodium 3 mg tabs active Not Available Not Available Not Available zolpidem tab 5mg active Not Available [...] Available No t Available Vitals Date Recorded Heart rate Oxygen saturation Oxygen saturation in Arterial blood by Pulse oximetry Systolic And Diastolic Provider Name and Address Organization Details Last Updated DateTime 04/08/2016 64 /min 96 % 96 % 131/84 mm[Hg] Melany Hernandez [place] [facility] 6 11:20:11 Date Recorded Oxygen saturation Oxygen saturation in Arterial blood by Pulse oximetry Heart rate Systolic And Diastolic Provider Name and Address Organization Details Last Updated DateTime 04/15/2015 96 % 96 % 60 /min 136/59 mm[Hg] Melany Hernandez [place] [facility] 5 14:21:08 Date Recorded Oxygen saturation Oxygen saturation in Arterial blood by Pulse oximetry Heart rate Systolic And Diastolic Provider Name and Address Organization Details Last Updated DateTime 04/23/2015 97 % 97 % 76 /min 129/60 mm[Hg] Melany Hernandez [place] [facility] 5 09:02:55 Date Recorded Oxygen saturation Oxygen saturation in Arterial blood by Pulse oximetry Heart rate Systolic And Diastolic Provider Name and Address Organization Details Last Updated DateTime 05/27/2015 96 % 96 % 51 /min 139/66 mm[Hg] Melany Hernandez [place] [facility] 5 10:53:13 Date Recorded Oxygen saturation Oxygen saturation in Arterial blood by Pulse oximetry Heart rate Systolic And Diastolic Provider Name and Address Organization Details Last Updated DateTime 07/11/2014 96 % 96 % 53 /min 159/51 mm[Hg] Melany Hernandez [place] [facility] 4 13:15:11 Social History Question Answer Notes LastModified by [employer] Details LastModified Time Tobacco Smoking Status Former Smoker Quit x 25 years Not Available [facility] 08/09/2020 03:16:11 Which Illicit Or Recreational Drugs Have You Used? No [id number] Information not available 08/09/2020 Education Post Graduate PhD In Education [email or web address] Information not available 01/09/2014 Live Alone Or With Others? With Others [email or web address] Information not available 01/09/2014 Marital Status [email or web address] Informatio n not available 01/09/2014 How Many Years Have You Smoked Tobacco? 20 [id number] Information not available 08/09/2020 Sex: Unknown Functional Status Question Answer Note LastModified by [employer] Details LastModified Time What is your level of alcohol consumption? None [id number] Information not available 08/09/2020 Are you currently employed? No Retired [id number] Information not available 08/09/2020 Mental Status None recorded. Family History Relationship Description Onset Age of this Age Resolved Age Notes LastModified by Organization Details LastModified Time Mother Problem Monieo theo [email or web address] Not available 04/08/2016 13:26:48 Medical History Condition Response Arthritis Y Irritable Bowel Syndrome Y Depression Y GERD/Reflux Y Gynecological HistoryNo gynecological history recorded. Obstetrics History GPAL:G 0 P 0 0 0 0 Past Encounters Encounter ID Performer Location Encounter Start Date Encounter Closed Date Diagnosis/Indication Diagnosis SNOMED-CT Code Diagnosis ICD10 Code Diagnosis IMO Codes Diagnosis Note [id number] John Chatterjee MD PAIN OFFICE [address] [place] [address] 01/09/2014 08:15:18 01/11/2014 15:38:17 Pain of hip region 06037851 Lumbosacra l radiculitis 02237575 Displaceme nt of lumbar intervertebral disc without myelopathy 04326185 [id number] John Chatterjee MD PAIN OFFICE [address] [place] [address] 01/18/2014 08:18:47 01/19/2014 09:08:58 Displacement of lumbar intervertebral disc without myelopathy 00079896 Pain of hip region 48071220 Lumbosacra l radiculitis 80336087 [id number] John Chatterjee MD PAIN OFFICE [address] [facility] [place] [id number] 01/29/2014 14:21:44 01/31/2014 09:29:23 Displacement of lumbar intervertebral disc without myelopathy 89140848 Pain of hip region 09848021 Lumbosacra l radiculitis 91723338 [id number] John Chatterjee MD PAIN OFFICE [address] [facility] [place] [id number] 03/01/2014 10:06:06 03/01/2014 13:24:08 Displacement of lumbar intervertebral disc without myelopathy 16831087 Pain of hip region 02961767 Lumbosacra l radiculitis 67234231 [id number] John Chatterjee MD PAIN OFFICE [address] [facility] [place] [id number] 03/12/2014 09:57:56 03/15/2014 13:28:33 Displacement of lumbar intervertebral disc without myelopathy 61633395 Pain of hip region 24622511 Lumbosacra l radiculitis 27153366 [id number] John Chatterjee MD PAIN OFFICE [address] [facility] [place] [id number] 04/26/2014 11:28:21 04/29/2014 17:17:49 Pain of hip region 67091202 Displaceme nt of lumbar intervertebral disc without myelopathy 66237160 Lumbosacra l radiculitis 53480363 Osteoarthr itis of knee 900914188 [id number] John Chatterjee MD PAIN OFFICE [address] [facility] [place] [id number] 07/11/2014 12:58:13 07/11/2014 13:46:41 Osteoarthritis of knee 022974592 Displaceme nt of lumbar intervertebral disc without myelopathy 05857573 Pain of hip region 24523001 Lumbosacra l radiculitis 19681534 [id number] John Chatterjee MD PAIN OFFICE [address] [facility] [place] [id number] 04/15/2015 13:58:25 04/19/2015 10:27:09 Osteoarthritis of knee 014010178 Displaceme nt of lumbar intervertebral disc without myelopathy 10685555 Pain of hip region 40010345 Lumbosacra l radiculitis 04767424 [id number] John Chatterjee MD PAIN OFFICE [address] [facility] [place] [address] 04/23/2015 08:47:56 04/23/2015 09:42:28 Osteoarthritis of knee 494511703 Displaceme nt of lumbar intervertebral disc without myelopathy 08370590 Pain of hip region 96142067 Lumbosacra l radiculitis 66024606 [id number] John Chatterjee MD PAIN OFFICE [address] [facility] [place] [address] 05/27/2015 09:46:08 05/28/2015 10:07:19 Osteoarthritis of knee 609707078 Displaceme nt of lumbar intervertebral disc without myelopathy 77665995 Pain of hip region 85760727 Lumbosacra l radiculitis 88601469 [id number] John Chatterjee MD PAIN OFFICE [address] [facility] [place] [address] 04/08/2016 10:58:30 04/08/2016 14:07:13 Pain of hip region 81385203 M25.552 Displaceme nt of lumbar intervertebral disc without myelopathy 00332784 M51.26 Lumbosacra l radiculitis 40281403 M54.17 Health Concerns Section Related Observation LastModified by Organization Detai ls LastModified Time None Recorded Concern Status LastModified by Organization Details LastModified Time None Recorded Advance Directives Directive None Recorded Payers Insurance Date Sequence Insurance Name Policy Number Policy Horne Covered Member ID Horne Member ID Guarantor Name 04/05/2016 1 [place] [employer] SERVICES Reema Joshua [id number] Reema Joshua 04/05/2016 2 [place] [facility] Reema Joshua [id number] Reema Joshua Notes Date Note Type Note Provider Name [...] bladder or bowel incontinence. John Chatterjee MD [address] [facility] , [address], [place], [address], [facility] 07/13/2014 11:28:19 04/15/2015 text/html She [...] , acupuncture and chiropractic treatments with no remote computer terminal operator pain benefit. She states the injections have helped her the most for pain relief. John Chatterjee MD [address] [facility] , [address], [place], [address], [facility] 04/22/2015 09:33:10 04/23/2015 text/html She is here for left knee steroid injection under ultrasound guidance. John Chatterjee MD [address] [facility] , [place] [address], [place], [address], [facility] 05/13/2015 10:33:59 05/27/2015 text/html She [...] posterior aspect of her knee. She is Ugandan speaking and her friend is interpreting today. John Chatterjee MD [address] [facility] , [address], [place], [address], [facility] 05/28/2015 14:52:36 04/08/2016 text/html She is here for a trochanteric bursal steroid injection under fluoroscopic guidance. She states she has an appointment with Dr. Ely in regards to a hip replacement in May of 2016. She has stopped plavix for the procedure. John Chatterjee MD [address] [place] [address] , [address], [place], [address], [place] [facility] 04/13/2016 09:58:16 OBGyn Episode No OBEpisode recorded.
== END 2025-08-22 09:29 | disposition home or self-care (01) ==
LOC: HO.HMGCLDS 09:28
PROVIDERS: PCP Internal Medicine; Visit Provider Internal Medicine
DX: I10 Essential (primary) hypertension (principal); E55.9 Vitamin D deficiency, unspecified; R73.9 Hyperglycemia, unspecified; K59.00 Constipation, unspecified; F32.9 Major depressive disorder, single episode, unspecified; I48.91 Unspecified atrial fibrillation; Z79.01 Long term (current) use of anticoagulants; Z79.899 Other long term (current) drug therapy
CPT/HCPCS: 36415; 80053; 82306; 83036; 83735